=== PATIENT | female | born 1970 | race Caucasian/White ===

== ENCOUNTER 2017-11-04 16:26 | Emergency (ER) | payer BC ==
[2017-11-04] MEDS ORDERED: Sodium Chloride 0.9% 10 ML Syringe FLUSH PRN (17:10)
[2017-11-04] MEDS ORDERED: Ondansetron 4 MG/2 ML SDV IVPUSH ONE (17:27)
[2017-11-04] MEDS ORDERED: Sodium Chloride 0.9% 1,000 ML IV ONE (17:27)
--- NOTE | 2017-11-04 19:02 | EDM.PDOC ---
ED HPI GENERAL MEDICAL PROBLEM - General Chief Complaint: Neuro Symptoms/Deficits Stated Complaint: CHEST PAIN Time Seen by Provider: 11/04/17 18:58 Source of Information: Reports: Patient History Limitations: Reports: No Limitations - History of Present Illness INITIAL COMMENTS - FREE TEXT/NARRATIVE: 47-year-old female presents for evaluation and treatment of chest pain, chest palpitations and dizziness. Patient feels that chest palpitations or dizziness are unrelated things. She reports that she's had the dizziness for the last week and a half since getting new glasses. She has subsequently followed up with her eye doctor and her vision has been corrected. She states that he is having difficulty focusing both eyes together. She states she was told by her eye doctor if she continues to have problems he would recommend imaging of the brain. Patient reports dizziness that is worse with movement. Reports associated symptoms of nausea and vomiting. States that the vomiting stopped on Friday. She also has headaches. She describes the dizziness as extreme carsickness. She did try Dramamine and meclizine with no relief. Patient also reports chest palpitations and chest pain. States this is been present for the last day. She appreciated high blood pressure earlier. Reports her blood pressure was 189/97 at home earlier. She states that she does feel short of breath like she "just ran a marathon ". No syncope or fatigue. Primary care provider is Dr. Montgomery. Patient presented to the walk-in clinic today but was sent over to us for further management and care. - Related Data Allergies Allergy/AdvReac Type Severity Reaction Status Date / Time codeine Allergy Airway Verified 11/04/17 16:33 Tightness Home Meds: Home Meds Meclizine [Antivert] 25 mg PO TID PRN #30 tab 11/04/17 [Rx] Ondansetron [Zofran ODT] 4 mg PO Q6H PRN #15 tab.dis 11/04/17 [Rx] Past Medical History Cardiovascular History: Reports: Hypertension Musculoskeletal History: Reports: Fibromyalgia, Other (See Below) Other Musculoskeletal History: arthritis Social & Family History - Tobacco Use Smoking Status *Q: Never Smoker - Recreational Drug Use Recreational Drug Use: No ED ROS GENERAL - Review of Systems Review Of Systems: See Below Constitutional: Denies: Fatigue HEENT: Reports: Vision Change Respiratory: Reports: Shortness of Breath Cardiovascular: Reports: Chest Pain, Lightheadedness, Palpitations. Denies: Syncope GI/Abdominal: Reports: Nausea, Vomiting. Denies: Abdominal Pain Musculoskeletal: Reports: Neck Pain (chronic) Neurological: Reports: Headache. Denies: Syncope ED EXAM, NEURO - Physical Exam Exam: See Below Exam Limited By: No Limitations General Appearance: Alert, WD/WN, No Apparent Distress Eye Exam: Bilateral Eye: Normal Inspection, Nystagmus (with horizontal and vertical gaze), PERRL Ears: Normal External Exam, Normal Canal, Hearing Grossly Normal, Normal TMs Nose: Normal Inspection Throat/Mouth: Normal Inspection, Normal Lips, Normal Voice, No Airway Compromise Head Exam: Atraumatic, Normocephalic Neck: Normal Inspection, Non-Tender, Full Range of Motion Respiratory/Chest: No Respiratory Distress, Lungs Clear, Normal Breath Sounds Cardiovascular: Normal Peripheral Pulses, Regular Rate, Rhythm, No Murmur GI/Abdominal: Soft, Non-Tender Neurological: Alert, Normal Mood/Affect, Normal Dorsiflexion, CN II-XII Intact, Normal Plantar Flexion, Normal Gait, Oriented x 3, Other (Normal heel to li testing) Psychiatric: Normal Affect, Normal Mood Skin Exam: Warm, Dry, Normal Color EKG INTERPRETATION EKG Date: 11/04/17 Time: 16:35 Rhythm: NSR Rate (Beats/Min): 90 [place]: Normal P-Wave: Present QRS: Normal ST-T: Normal QT: Normal EKG Interpretation Comments: NSR at 90 bpm. No acute changes. Reviewed by myself and Dr. Whitten. Course - Vital Signs Last Recorded V/S: Last Vital Signs Temp 37.2 C 11/04/17 16:33 Pulse 93 11/04/17 16:33 Resp 17 11/04/17 16:33 BP 146/84 H 11/04/17 16:33 Pulse Ox 100 11/04/17 16:33 Orthostatic Blood Pressure [ 142/88 Standing] Orthostatic Blood Pressure [ 144/95 Sitting] Orthostatic Blood Pressure [ 132/85 Supine] - Orders/Labs/Meds Labs: Laboratory Tests 11/04/17 11/04/17 11/04/17 Range/Units 16:45 16:45 16:45 WBC 8.49 (3.98-10.04) K/mm3 RBC 5.19 (3.98-5.22) M/mm3 Hgb 14.6 (11.2-15.7) gm/L Hct 43.2 (34.1-44.9) % MCV 83.2 (79.4-94.8) fl MCH 28.1 (25.6-32.2) pg MCHC 33.8 (32.2-35.5) g/dl RDW Std Deviation 38.6 (36.4-46.3) fL Plt Count 338 (182-369) K/mm3 MPV 9.5 (9.4-12.3) fl Neutrophils % (Manual) 59 (40-60) % Band Neutrophils % 0 (0-10) % Lymphocytes % (Manual) 36 (20-40) % Atypical Lymphs % 0 % Monocytes % (Manual) 1 L (2-10) % Eosinophils % (Manual) 2 (0.7-5.8) % Basophils % (Manual) 2 H (0.1-1.2) Platelet Estimate Adequate Plt Morphology Comment Normal RBC Morph Comment Normal Sodium 143 (136-145) mEq/L Potassium 4.2 (3.5-5.1) mEq/L Chloride 107 (98-107) mEq/L Carbon Dioxide 26 (21-32) mEq/L Anion Gap 14.2 (5-15) BUN 18 (7-18) mg/dL Creatinine 0.8 (0.55-1.02) mg/dL Est Cr Clr Drug Dosing 76.68 mL/min Estimated GFR (MDRD) > 60 (>60) mL/min BUN/Creatinine Ratio 22.5 H (14-18) Glucose 111 H (74-106) mg/dL Calcium 9.1 (8.5-10.1) mg/dL Magnesium 2.0 (1.8-2.4) mg/dl Total Bilirubin 0.3 (0.2-1.0) mg/dL AST 21 (15-37) U/L ALT 28 (14-59) U/L Alkaline Phosphatase 76 (46-116) U/L Troponin I < 0.017 (0.00-0.056) ng/mL Total Protein 6.7 (6.4-8.2) g/dl Albumin 3.7 (3.4-5.0) g/dl Globulin 3.0 gm/dL Albumin/Globulin Ratio 1.2 (1-2) TSH 3rd Generation 2.384 (0.358-3.74) uIU/mL Urine Color (Yellow) Urine Appearance (Clear) Urine pH (5.0-8.0) Ur Specific [place] (1.005-1.030) Urine Protein (Negative) Urine Glucose (UA) (Negative) Urine Ketones (Negative) Urine Occult Blood (Negative) Urine Nitrite (Negative) Urine Bilirubin (Negative) Urine Urobilinogen (0.2-1.0) Ur Leukocyte Esterase (Negative) Urine RBC (0-5) /hpf Urine WBC (0-5) /hpf Ur Epithelial Cells (0-5) /hpf Urine Bacteria (FEW) /hpf Urine Mucus (FEW) /hpf Urine HCG, Qual (NEGATIVE) 11/04/17 11/04/17 Range/Units 17:30 17:30 WBC (3.98-10.04) K/mm3 RBC (3.98-5.22) M/mm3 Hgb (11.2-15.7) gm/L Hct (34.1-44.9) % MCV (79.4-94.8) fl MCH (25.6-32.2) pg MCHC (32.2-35.5) g/dl RDW Std Deviation (36.4-46.3) fL Plt Count (182-369) K/mm3 MPV (9.4-12.3) fl Neutrophils % (Manual) (40-60) % Band Neutrophils % (0-10) % Lymphocytes % (Manual) (20-40) % Atypical Lymphs % % Monocytes % (Manual) (2-10) % Eosinophils % (Manual) (0.7-5.8) % Basophils % (Manual) (0.1-1.2) Platelet Estimate Plt Morphology Comment RBC Morph Comment Sodium (136-145) mEq/L Potassium (3.5-5.1) mEq/L Chloride (98-107) mEq/L Carbon Dioxide (21-32) mEq/L Anion Gap (5-15) BUN (7-18) mg/dL Creatinine (0.55-1.02) mg/dL Est Cr Clr Drug Dosing mL/min Estimated GFR (MDRD) (>60) mL/min BUN/Creatinine Ratio (14-18) Glucose (74-106) mg/dL Calcium (8.5-10.1) mg/dL Magnesium (1.8-2.4) mg/dl Total Bilirubin (0.2-1.0) mg/dL AST (15-37) U/L ALT (14-59) U/L Alkaline Phosphatase (46-116) U/L Troponin I (0.00-0.056) ng/mL Total Protein (6.4-8.2) g/dl Albumin (3.4-5.0) g/dl Globulin gm/dL Albumin/Globulin Ratio (1-2) TSH 3rd Generation (0.358-3.74) uIU/mL Urine Color Yellow (Yellow) Urine Appearance Clear (Clear) Urine pH 5.5 (5.0-8.0) Ur Specific [place] 1.020 (1.005-1.030) Urine Protein Negative (Negative) Urine Glucose (UA) Negative (Negative) Urine Ketones Negative (Negative) Urine Occult Blood Trace-intact H (Negative) Urine Nitrite Negative (Negative) Urine Bilirubin Negative (Negative) Urine Urobilinogen 0.2 (0.2-1.0) Ur Leukocyte Esterase Negative (Negative) Urine RBC 0-5 (0-5) /hpf Urine WBC 0-5 (0-5) /hpf Ur Epithelial Cells 0-5 (0-5) /hpf Urine Bacteria Not seen (FEW) /hpf Urine Mucus Not seen (FEW) /hpf Urine HCG, Qual Negative (NEGATIVE) Meds: Medications Discontinued Medications Generic Name Dose Route Start Last Admin Trade Name Freq PRN Reason Stop Dose Admin Sodium Chloride 1,000 mls @ 999 mls/hr 11/04/17 17:27 11/04/17 17:37 Normal Saline IV 11/04/17 18:27 999 mls/hr ONETIME ONE Administration Meclizine HCl 25 mg 11/04/17 17:27 11/04/17 17:37 Antivert PO 11/04/17 17:28 25 mg NOW STA Administration Ondansetron HCl 4 mg 11/04/17 17:27 11/04/17 17:35 Zofran IVPUSH 11/04/17 17:28 4 mg ONETIME ONE Administration Sodium Chloride 10 ml 11/04/17 17:10 11/04/17 17:37 Saline Flush FLUSH 10 ml ASDIRECTED PRN Administration Keep Vein Open - Radiology Interpretation Free Text/Narrative:: CT of the head without contrast impression per [facility]: Normal head/brain CT. Chest x-ray shows no acute intrathoracic process. - Re-Assessments/Exams Free Text/Narrative Re-Assessment/Exam: 11/04/17 19:47 I reviewed the labs, EKG and imaging with the patient. She feels greatly improved with the Zofran and meclizine. I do question she something like BPPV. We discussed physical therapy. She may follow-up with physical therapy if not much better. Recommend if she continues to have the vision problems an MRI would be the next step if she continues to have this. Patient reports the chest pain and palpitations have resolved since coming to the ER. Question of this is anxiety related. Will discharge home at this time. Discharge instructions as documented. Departure - Departure Time of Disposition: 19:48 Disposition: Home, Self-Care 01 Condition: Good Clinical Impression: Vertigo - Discharge Information Prescriptions: Meclizine [Antivert] 25 mg PO TID PRN #30 tab PRN Reason: Dizziness Ondansetron [Zofran ODT] 4 mg PO Q6H PRN #15 tab.dis PRN Reason: Nausea Instructions: Vertigo Referrals: Brian Cox MD [Primary Care Provider] - Forms: ED Department Discharge Additional Instructions: Take the Zofran 1 tab some of the every 6 hours as needed for nausea. Meclizine 1 tab 3 times a day as needed for dizziness. make sure you are drinking plenty of fluids. Follow up with physical therapy if you continue to have dizziness. Follow-up with your primary care provider within 2 weeks for recheck of your symptoms. Please return to the ER if your symptoms change or worsen.
--- NOTE | 2017-11-05 08:30 | CR ---
Chest: Portable view of the chest was obtained. Comparison: No prior chest x-ray. Heart size appears within normal limits for portable technique. Tortuous thoracic aorta is seen. Lungs are clear with no acute parenchymal change. Bony structures appear within normal limits. Impression: 1. Nothing acute is identified on portable chest x-ray. Diagnostic code #1
--- NOTE | 2017-11-05 08:30 | CT ---
Head CT Technique: Multiple axial sections through the brain were obtained. Intravenous contrast was not utilized. Comparison: No previous intracranial imaging. Findings: Ventricles along with basal cisterns and sulci over the convexities are within normal limits for the patient's age. No abnormal parenchymal densities are seen. No evidence of intracranial hemorrhage. No midline shift or mass effect is seen. Bone window settings were reviewed which show the visualized sinuses to appear clear. No acute calvarial abnormality is seen. Impression: 1. Nothing acute is seen on noncontrast head CT study. Diagnostic code #1 Agree with preliminary report issued by [facility] ([facility] preliminary report dictated on 11/04/17, 7:48 PM Central Time)
== END 2017-11-04 20:00 | disposition home or self-care (01) ==
LOC: JD.ED 16:26
DX: R42 Dizziness and giddiness (principal); R07.9 Chest pain, unspecified; R00.2 Palpitations; I10 Essential (primary) hypertension; Z88.5 Allergy status to narcotic agent
CPT/HCPCS: 36415; 70460; 71045; 80053; 81001; 81025; 83735; 84443; 84484; 85025; 93005; 96361; 96374; 99285; A9270; J2405; J7040; J7050

== ENCOUNTER 2019-04-08 16:20 | Emergency (ER) | payer MEDICAID ==
--- NOTE | 2019-04-08 16:45 | EDM.PDOC ---
ED HPI GENERAL MEDICAL PROBLEM - General Chief Complaint: Cardiovascular Problem Stated Complaint: HIGH BLOOD PRESSURE AND SOB Time Seen by Provider: 04/08/19 16:42 - History of Present Illness INITIAL COMMENTS - FREE TEXT/NARRATIVE: 48-year-old female presents emergency room with palpitations chest discomfort with the palpitations. This is been an ongoing problem for the patient today he's been exceptionally worse patient needed to work within had the sensation work felt like her heart was turning inside of her chest. Her pulse rate was erratic. And her blood pressure went up. Patient is treated for hypertension. With further discussion with patient and her children confirming this the patient has significant problems with snoring and has multiple episodes were she stops breathing at night. Left Chest Pain Score (Numeric/FACES): 4 - Related Data Allergies Allergy/AdvReac Type Severity Reaction Status Date / Time codeine Allergy Airway Verified 11/04/17 16:33 Tightness Home Meds: Home Meds Meclizine [Antivert] 25 mg PO TID PRN #30 tab 11/04/17 [Rx] Cetirizine [ZyrTEC] 10 mg PO DAILY 03/06/18 [History] Gabapentin [Neurontin] 600 mg PO BID 03/06/18 [History] Metoprolol Succinate 25 mg PO DAILY 03/06/18 [History] Past Medical History HEENT History: Reports: Allergic Rhinitis Cardiovascular History: Reports: Hypertension Musculoskeletal History: Reports: Arthritis Other Musculoskeletal History: arthritis Neurological History: Reports: Migraines Psychiatric History: Reports: Depression, Other (See Below) Endocrine/Metabolic History: Reports: Obesity/BMI 30+ - Past Surgical History HEENT Surgical History: Reports: Adenoidectomy, Myringotomy w Tube(s), Oral Surgery, Polypectomy GI Surgical History: Reports: Cholecystectomy, Hernia, Inguinal Female Surgical History: Reports: D&C, Hysterectomy Social & Family History - Tobacco Use Smoking Status *Q: Never Smoker - Caffeine Use Caffeine Use: Reports: Coffee, Soda, Tea - Recreational Drug Use Recreational Drug Use: No - Living Situation & Occupation Living situation: Reports: , with Family (Mother, 3 kids) Occupation: Unemployed ED ROS GENERAL - Review of Systems Review Of Systems: See Below Constitutional: Reports: No Symptoms HEENT: Reports: No Symptoms Respiratory: Reports: Shortness of Breath, Pleuritic Chest Pain, Cough. Denies : Wheezing, Sputum Cardiovascular: Reports: Chest Pain, Dyspnea on Exertion, Palpitations. Denies : Edema Endocrine: Reports: No Symptoms GI/Abdominal: Reports: No Symptoms Neurological: Reports: No Symptoms ED EXAM, GENERAL - Physical Exam Exam: See Below Exam Limited By: No Limitations General Appearance: Alert, No Apparent Distress, Other (Her blood pressure is moderately elevated upon arrival but this did come down with rest sometimes significantly so with systolics in the 120s and 130s) Eye Exam: Bilateral Eye: Normal Inspection Head: Atraumatic, Normocephalic Neck: Normal Inspection, Supple, Non-Tender, Full Range of Motion Respiratory/Chest: No Respiratory Distress, Lungs Clear, Normal Breath Sounds Extremities: Normal Inspection, No Pedal Edema Neurological: Alert, Oriented, Normal Cognition EKG INTERPRETATION EKG Date: 04/08/19 Rhythm: NSR [place]: Normal P-Wave: Present QRS: Normal ST-T: Normal QT: Normal Comparison: NA - No Prior EKG EKG Interpretation Comments: Normal EKG Course - Vital Signs Last Recorded V/S: Last Vital Signs Temp 36.3 C 04/08/19 16:38 Pulse 97 04/08/19 16:38 Resp 20 04/08/19 16:38 BP 174/102 H 04/08/19 16:38 Pulse Ox 97 04/08/19 16:38 - Orders/Labs/Meds Orders: Active Orders 24 hr Category Date Time Status EKG Documentation Completion [RC] ASDIRECTED Care 04/08/19 16:34 Active Holter Monitor 48 Hours [RC] .PRN Care 04/08/19 19:00 Ordered RT Post Treatment Assessment [RC] Click to Edit Care 04/08/19 18:50 Ordered RT Pre-Treatment Assessment [RC] Click to Edit Care 04/08/19 18:50 Ordered Chest 2V [CR] Stat Exams 04/08/19 17:12 Taken EKG 12 Lead [EK] Stat Ther 04/08/19 16:33 Ordered Labs: Laboratory Tests 04/08/19 04/08/19 04/08/19 Range/Units 17:31 17:31 17:31 WBC 10.25 H (3.98-10.04) K/mm3 RBC 5.23 H (3.98-5.22) M/mm3 Hgb 14.6 (11.2-15.7) gm/L Hct 43.3 (34.1-44.9) % MCV 82.8 (79.4-94.8) fl MCH 27.9 (25.6-32.2) pg MCHC 33.7 (32.2-35.5) g/dl RDW Std Deviation 39.5 (36.4-46.3) fL Plt Count 428 H D (182-369) K/mm3 MPV 8.9 L (9.4-12.3) fl Neutrophils % (Manual) 71 H (40-60) % Band Neutrophils % 0 (0-10) % Lymphocytes % (Manual) 24 (20-40) % Atypical Lymphs % 0 % Monocytes % (Manual) 3 (2-10) % Eosinophils % (Manual) 2 (0.7-5.8) % Basophils % (Manual) 0 L (0.1-1.2) Platelet Estimate Adequate RBC Morph Comment Normal PT 10.1 (9.7-12.0) SECONDS INR < 0.93 APTT 29 (22-31) SECONDS D-Dimer, Quantitative 0.32 (0.19-0.50) mg/L Sodium 140 (136-145) mEq/L Potassium 3.9 (3.5-5.1) mEq/L Chloride 105 (98-107) mEq/L Carbon Dioxide 25 (21-32) mEq/L Anion Gap 13.9 (5-15) BUN 18 (7-18) mg/dL Creatinine 0.7 (0.55-1.02) mg/dL Est Cr Clr Drug Dosing 86.72 mL/min Estimated GFR (MDRD) > 60 (>60) mL/min BUN/Creatinine Ratio 25.7 H (14-18) Glucose 105 (74-106) mg/dL Calcium 9.2 (8.5-10.1) mg/dL Total Bilirubin 0.3 (0.2-1.0) mg/dL AST 15 (15-37) U/L ALT 30 (14-59) U/L Alkaline Phosphatase 96 (46-116) U/L Troponin I < 0.017 (0.00-0.056) ng/mL Total Protein 7.0 (6.4-8.2) g/dl Albumin 3.4 (3.4-5.0) g/dl Globulin 3.6 gm/dL Albumin/Globulin Ratio 0.9 L (1-2) Meds: Medications Discontinued Medications Generic Name Dose Route Start Last Admin Trade Name [place] PRN Reason Stop Dose Admin Albuterol 8.5 gm 04/08/19 18:50 Proventil Hfa INH 04/08/19 18:51 ONETIME ONE - Re-Assessments/Exams Free Text/Narrative Re-Assessment/Exam: 04/08/19 19:13 Laboratory evaluation is unremarkable chest x-ray shows no acute cardiopulmonary changes no cardiomegaly she's had some degenerative changes noted. We'll try and get a Holter monitor hooked up for her strongly encouraged her to have a talk with her regular physician about getting sleep apnea studies done. It sounds like she has a big snoring problem with multiple pauses in her breathing and prolonged episodes are she's not breathing according to her kids. Departure - Departure Time of Disposition: 19:16 Disposition: Home, Self-Care 01 Clinical Impression: Palpitations, Hypertension, Bronchitis Referrals: Brian Cox MD [Primary Care Provider] - Forms: ED Department Discharge Additional Instructions: Return to emergency room if any questions problems worsening symptoms. Use the albuterol inhaler 2 puffs every 4 hours while awake. Return the Holter monitor is scheduled. Several days after the Holter monitor is returned follow-up with your regular physician. Discussed the results of the Holter discuss sleep apnea and the need for sleep studies. - My Orders Last 24 Hours: My Active Orders 04/08/19 16:33 EKG 12 Lead [EK] Stat 04/08/19 16:34 EKG Documentation Completion [RC] ASDIRECTED 04/08/19 17:12 Chest 2V [CR] Stat 04/08/19 18:50 RT Post Treatment Assessment [RC] Click to Edit RT Pre-Treatment Assessment [RC] Click to Edit 04/08/19 19:00 Holter Monitor 48 Hours [RC] .PRN - Assessment/Plan Last 24 Hours: My Active Orders 04/08/19 16:33 EKG 12 Lead [EK] Stat 04/08/19 16:34 EKG Documentation Completion [RC] ASDIRECTED 04/08/19 17:12 Chest 2V [CR] Stat 04/08/19 18:50 RT Post Treatment Assessment [RC] Click to Edit RT Pre-Treatment Assessment [RC] Click to Edit 04/08/19 19:00 Holter Monitor 48 Hours [RC] .PRN
[2019-04-08] MEDS ORDERED: Albuterol 6.7 GM Inhaler INH ONE (18:50)
--- NOTE | 2019-04-09 09:10 | CR ---
Chest: Two views of the chest were obtained. Comparison: Prior chest x-ray of 11/04/17. Heart size at the upper limits of normal. Tortuous thoracic aorta is seen. Lungs are clear with no acute parenchymal change. Degenerative endplate spurring is noted within the mid and lower thoracic spine. No acute osseous finding is seen. Impression: 1. Heart size at the upper limits of normal. Other incidental findings. 2. Nothing acute is appreciated. Diagnostic code #2
== END 2019-04-08 19:40 | disposition home or self-care (01) ==
LOC: JD.ED 16:20
DX: R00.2 Palpitations (principal); J40 Bronchitis, not specified as acute or chronic; I10 Essential (primary) hypertension; F32.9 Major depressive disorder, single episode, unspecified; E66.9 Obesity, unspecified; Z98.890 Other specified postprocedural states; Z88.5 Allergy status to narcotic agent; Z90.49 Acquired absence of other specified parts of digestive tract; Z68.41 Body mass index [BMI] 40.0-44.9, adult; Z79.899 Other long term (current) drug therapy
CPT/HCPCS: 36415; 71046; 80053; 84484; 85007; 85027; 85379; 85610; 85730; 93005; 93225; 93226; 99285; A9270

== ENCOUNTER 2019-05-26 17:36 | Emergency (ER) | payer MEDICAID ==
[2019-05-26] MEDS ORDERED: Racepinephrine 2.25% 0.5 ML Neb Soln NEB ONE (18:15)
[2019-05-26] MEDS ORDERED: Sodium Chloride 0.9% Inhalation Soln 3 ML Neb INH PRN (18:15)
[2019-05-26] MEDS ORDERED: Dexamethasone 10 MG/ML SDV IM ONE (18:16)
--- NOTE | 2019-05-26 18:24 | EDM.PDOC ---
<Lucrecia Benitez - Last Filed: 05/26/19 18:10> ED HPI GENERAL MEDICAL PROBLEM - General Chief Complaint: Respiratory Problem Stated Complaint: DIFFICULTY BREATHING Time Seen by Provider: 05/26/19 17:46 Source of Information: Reports: Patient History Limitations: Reports: No Limitations - History of Present Illness INITIAL COMMENTS - FREE TEXT/NARRATIVE: Evelia is a 48 year old female who presents to the ED today with difficulty breathing. She was seen at the ENT in [place] yesterday for evaluation of dyspnea. 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 She was then sent to the [facility] ED where a CT with contrast of her neck was done along with a CTA of her chest. She was given a duoneb while in the ED but she said this did not give her much relief. She was told to follow up with pulmonology in 6 days and to come to the ED if she experienced any difficulty breathing before then. Today while at work her coworkers noticed something was "off" about her and she felt that her pulse was racing and she could not catch her breath. She went into the cooler and the cool air seemed to help her catch her breath. She was still audibly wheezing and felt as though she could not take a deep breath after work, which was just prior to arriving in the ED. Headache Pain Score (Numeric/FACES): 7 - Related Data Allergies Allergy/AdvReac Type Severity Reaction Status Date / Time codeine Allergy Airway Verified 05/26/19 17:49 Tightness Home Meds: Home Meds Meclizine [Antivert] 25 mg PO TID PRN #30 tab 11/04/17 [Rx] Cetirizine [ZyrTEC] 10 mg PO DAILY 03/06/18 [History] Metoprolol Succinate 50 mg PO DAILY 03/06/18 [History] Albuterol Sulfate [Proair Respiclick] 2 puff IH Q4H 05/26/19 [History] Celecoxib [CeleBREX] 200 mg PO DAILY 05/26/19 [History] Cyclobenzaprine [Flexeril] 10 mg PO BEDTIME 05/26/19 [History] Gabapentin [Neurontin] 100 mg PO TID 05/26/19 [History] Montelukast Sodium [Singulair] 10 mg PO BEDTIME 05/26/19 [History] Multivitamin with Minerals [Hair, Skin and Nails] 3 tab PO DAILY 05/26/19 [ History] Multivits,Ca,Minerals/Iron/FA [Women's Daily Formula Caplet] 1 tab PO DAILY [History] Past Medical History HEENT History: Reports: Allergic Rhinitis Cardiovascular History: Reports: Hypertension Respiratory History: Reports: Other (See Below) Other Respiratory History: trachea stenosis Musculoskeletal History: Reports: Arthritis Other Musculoskeletal History: arthritis Neurological History: Reports: Migraines Psychiatric History: Reports: Depression Endocrine/Metabolic History: Reports: Obesity/BMI 30+ - Past Surgical History HEENT Surgical History: Reports: Adenoidectomy, Myringotomy w Tube(s), Oral Surgery, Polypectomy GI Surgical History: Reports: Cholecystectomy, Hernia, Inguinal Female Surgical History: Reports: D&C, Hysterectomy Social & Family History - Tobacco Use Smoking Status *Q: Never Smoker - Caffeine Use Caffeine Use: Reports: Coffee - Recreational Drug Use Recreational Drug Use: No - Living Situation & Occupation Living situation: Reports: , with Family (Mother, 3 kids) Occupation: Unemployed ED ROS GENERAL - Review of Systems Review Of Systems: See Below Constitutional: Reports: No Symptoms HEENT: Reports: No Symptoms Respiratory: Reports: Shortness of Breath, Wheezing Cardiovascular: Reports: No Symptoms Endocrine: Reports: No Symptoms GI/Abdominal: Reports: No Symptoms : Reports: No Symptoms Musculoskeletal: Reports: No Symptoms Skin: Reports: No Symptoms Neurological: Reports: No Symptoms Psychiatric: Reports: No Symptoms Hematologic/Lymphatic: Reports: No Symptoms Immunologic: Reports: No Symptoms ED EXAM, GENERAL - Physical Exam Exam: See Below Exam Limited By: No Limitations General Appearance: Alert, WD/WN, No Apparent Distress Neck: Normal Inspection, Supple, Non-Tender, Full Range of Motion Respiratory/Chest: Chest Non-Tender, Respiratory Distress (mild), Wheezing ( audible wheezing along with expiratory wheezes on auscultation ), Accessory Muscle Use (paradoxical breathing ) Cardiovascular: Normal Peripheral Pulses, Regular Rate, Rhythm, No Edema, No Gallop, No JVD, No Murmur, No Rub GI/Abdominal: Normal Bowel Sounds, Soft, Non-Tender, No Organomegaly, No Distention, No Abnormal Bruit, No Mass Back Exam: Normal Inspection, Full Range of Motion, NT Extremities: Normal Inspection, Normal Range of Motion, Non-Tender, Normal Capillary Refill, No Pedal Edema Neurological: Alert, Oriented Psychiatric: Normal Affect, Normal Mood Skin Exam: Warm, Dry, Intact, Normal Color, No Rash Lymphatic: No Adenopathy Course - Vital Signs Last Recorded V/S: Last Vital Signs Temp 97.6 F 05/26/19 17:45 Pulse 79 05/26/19 17:45 Resp 21 H 05/26/19 17:45 BP 133/95 H 05/26/19 17:45 Pulse Ox 100 05/26/19 17:45 - Orders/Labs/Meds Orders: Active Orders 24 hr Category Date Time Status RT Aerosol Therapy [RC] ASDIRECTED Care 05/26/19 18:15 Active Sodium Chloride 0.9% Med 05/26/19 18:15 Active 3 ml INH ASDIRECTED PRN Medication Orders Sodium Chloride (Sodium Chloride 0.9%) 3 ml INH ASDIRECTED PRN PRN Reason: mix with racepinephrine neb Meds: Medications Generic Name Dose Route Start Last Admin Trade Name Freq PRN Reason Stop Dose Admin Sodium Chloride 3 ml 05/26/19 18:15 Sodium Chloride 0.9% INH ASDIRECTED PRN mix with racepinephrine neb Discontinued Medications Generic Name Dose Route Start Last Admin Trade Name Freq PRN Reason Stop Dose Admin Dexamethasone 10 mg 05/26/19 18:16 05/26/19 18:27 Dexamethasone IM 05/26/19 18:17 10 mg ONETIME ONE Administration Racepinephrine 0.5 ml 05/26/19 18:15 05/26/19 18:35 S-2 2.25% NEB 05/26/19 18:16 0.5 ml ONETIME ONE Administration Departure - Departure Disposition: Home, Self-Care 01 Clinical Impression: Dyspnea Qualifiers: Dyspnea type: shortness of breath Qualified Code(s): R06.02 - Shortness of breath - Discharge Information Instructions: Shortness of Breath, Adult, [id number] Referrals: Brian Cox MD [Primary Care Provider] - Forms: ED Department Discharge, ED Return to Work/School Form Additional Instructions: You were evaluated in the ER today regarding your shortness of breath. You were given a racemic epinephrine nebulizer, this works on the upper airways to help open them up and help you breathe better. You were given a 10 mg IM injection of dexamethasone, this medication should provide you relief, and is a longer acting steroid. You should notice most benefit starting within 4-6 hours. Recommend that you follow up with pulmonology at [facility] in [place], as early as you are able tomorrow, for further management of this. If your finding or having difficulty breathing, please go outside into the cool air to see if this does not help soothe her airways, you may also use a cool mist humidifier at bedside for nighttime use. Please return to the ED at any time if your symptoms change or worsen. - My Orders Last 24 Hours: My Active Orders 05/26/19 18:15 RT Aerosol Therapy [RC] ASDIRECTED Sodium Chloride 0.9% 3 ml INH ASDIRECTED PRN - Assessment/Plan Last 24 Hours: My Active Orders 05/26/19 18:15 RT Aerosol Therapy [RC] ASDIRECTED Sodium Chloride 0.9% 3 ml INH ASDIRECTED PRN <Radha Ndiaye - Last Filed: 05/26/19 19:41> ED HPI GENERAL MEDICAL PROBLEM - History of Present Illness INITIAL COMMENTS - FREE TEXT/NARRATIVE: I have read and reviewed the student's HPI and examined the patient and agree with ARABELLA Hartley-student. Course - Re-Assessments/Exams Free Text/Narrative Re-Assessment/Exam: 05/26/19 19:25 Patient presents to the ED for evaluation of difficulty breathing. I did order racemic epinephrine and 10 mg dexamethasone for initial management. The patient did have a good response to this, and she states this is a best she's been breathing in the past 2 months. At this time patient is hemodynamically stable, and O2 sats are good, the wheezing has diminished quite greatly. We'll discharge her home with general recommendations. She will need to follow up with pulmonology as soon as possible for further management. She is understanding of this. Departure - Departure Time of Disposition: 19:26 Condition: Fair - Discharge Information *PRESCRIPTION DRUG MONITORING PROGRAM REVIEWED*: No *COPY OF PRESCRIPTION DRUG MONITORING REPORT IN PATIENT HERMINIA: No
== END 2019-05-26 19:38 | disposition home or self-care (01) ==
LOC: JD.ED 17:36
DX: R06.02 Shortness of breath (principal); I10 Essential (primary) hypertension; M19.90 Unspecified osteoarthritis, unspecified site; E66.9 Obesity, unspecified; Z68.41 Body mass index [BMI] 40.0-44.9, adult; Z88.5 Allergy status to narcotic agent; Z79.899 Other long term (current) drug therapy
CPT/HCPCS: 94640; 96372; 99284; J1100

== ENCOUNTER 2019-09-04 15:56 | Emergency (ER) | payer MEDICAID ==
[2019-09-04] MEDS ORDERED: Ondansetron 4 MG/2 ML SDV IVPUSH ONE (16:20)
[2019-09-04] MEDS ORDERED: Sodium Chloride 0.9% 10 ML Syringe FLUSH PRN (16:20)
[2019-09-04] MEDS ORDERED: Albuterol/Ipratropium 3.0-0.5 MG/3 ML Neb Soln NEB ONE (16:21)
[2019-09-04] MEDS ORDERED: Sodium Chloride 0.9% 1,000 ML IV SCH (16:30)
--- NOTE | 2019-09-04 17:11 | EDM.PDOC ---
ED HPI GENERAL MEDICAL PROBLEM - General Chief Complaint: Respiratory Problem Stated Complaint: SOB Time Seen by Provider: 09/04/19 16:11 Source of Information: Reports: Patient History Limitations: Reports: No Limitations - History of Present Illness INITIAL COMMENTS - FREE TEXT/NARRATIVE: The patient presents for shortness of breath and chest pain. This started this afternoon. 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 She then had shortness of breath and some chest pain. She will get some spasms of her airway at times and she does have asthma. 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 She has no fever, chills, cough, congestion, or dysuria. She did take a couple puffs off of her inhaler and it helped a little. She does not have much abdominal pain. Onset: Sudden Duration: Hour(s): Location: Reports: Chest Quality: Reports: Pressure Severity: Moderate Improves with: Reports: None Worsens with: Reports: None Associated Symptoms: Reports: Chest Pain, Nausea/Vomiting, Shortness of Breath. Denies: Cough, Fever/Chills, Headaches Middle Chest Pain Score (Numeric/FACES): 5 - Related Data Allergies Allergy/AdvReac Type Severity Reaction Status Date / Time codeine Allergy Airway Verified 09/04/19 16:03 Tightness Home Meds: Home Meds Meclizine [Antivert] 25 mg PO TID PRN #30 tab 11/04/17 [Rx] Cetirizine [ZyrTEC] 10 mg PO DAILY 03/06/18 [History] Metoprolol Succinate 50 mg PO DAILY 03/06/18 [History] Albuterol Sulfate [Proair Respiclick] 2 puff IH Q4H 05/26/19 [History] Celecoxib [CeleBREX] 200 mg PO DAILY 05/26/19 [History] Cyclobenzaprine [Flexeril] 10 mg PO BEDTIME 05/26/19 [History] Gabapentin [Neurontin] 100 mg PO TID 05/26/19 [History] Montelukast Sodium [Singulair] 10 mg PO BEDTIME 05/26/19 [History] Multivit,Calc,Mins/Iron/Folic [Women's Daily Formula Caplet] 1 tab PO DAILY [History] Multivitamin with Minerals [Hair, Skin and Nails] 3 tab PO DAILY 05/26/19 [ History] Ondansetron [Zofran ODT] 4 mg PO Q6H PRN #20 tab.dis 09/04/19 [Rx] Past Medical History HEENT History: Reports: Allergic Rhinitis Cardiovascular History: Reports: Hypertension Respiratory History: Reports: Asthma, Other (See Below) Other Respiratory History: trachea stenosis, spastic trachea Musculoskeletal History: Reports: Arthritis Other Musculoskeletal History: arthritis Neurological History: Reports: Migraines Psychiatric History: Reports: Depression Endocrine/Metabolic History: Reports: Obesity/BMI 30+ - Past Surgical History HEENT Surgical History: Reports: Adenoidectomy, Myringotomy w Tube(s), Oral Surgery, Polypectomy GI Surgical History: Reports: Cholecystectomy, Hernia, Inguinal Female Surgical History: Reports: D&C, Hysterectomy Social & Family History - Tobacco Use Smoking Status *Q: Never Smoker Second Hand Smoke Exposure: No - Caffeine Use Caffeine Use: Reports: None - Recreational Drug Use Recreational Drug Use: No - Living Situation & Occupation Living situation: Reports: , with Family (Mother, 3 kids) Occupation: Unemployed ED ROS GENERAL - Review of Systems Review Of Systems: See Below Constitutional: Reports: No Symptoms HEENT: Reports: No Symptoms Respiratory: Reports: Shortness of Breath. Denies: Cough Cardiovascular: Reports: Chest Pain Endocrine: Reports: No Symptoms GI/Abdominal: Reports: Diarrhea, Nausea, Vomiting. Denies: Abdominal Pain : Reports: No Symptoms Musculoskeletal: Reports: No Symptoms ED EXAM, GENERAL - Physical Exam Exam: See Below Exam Limited By: No Limitations General Appearance: Alert, No Apparent Distress Ears: Normal External Exam Nose: Normal Inspection Head: Atraumatic, Normocephalic Neck: Normal Inspection Respiratory/Chest: No Respiratory Distress, Wheezing Cardiovascular: Regular Rate, Rhythm, No Edema, No Murmur GI/Abdominal: Soft, Non-Tender, No Organomegaly, No Mass Back Exam: Normal Inspection Extremities: Normal Inspection Course - Vital Signs Last Recorded V/S: Last Vital Signs Temp 97.6 F 09/04/19 16:00 Pulse 97 09/04/19 16:00 Resp 16 09/04/19 16:00 BP 156/90 H 09/04/19 16:00 Pulse Ox 96 09/04/19 16:21 - Orders/Labs/Meds Orders: Active Orders 24 hr Category Date Time Status Cardiac Monitoring [RC] . DIRECTED Care 09/04/19 16:20 Active EKG 12 Lead [EKG Documentation Completion] [RC] STAT Care 09/04/19 16:08 Active Peripheral IV Care [RC] . DIRECTED Care 09/04/19 16:20 Active RT Aerosol Therapy [RC] ASDIRECTED Care 09/04/19 16:21 Active Sodium Chloride 0.9% [Normal Saline] 1,000 ml Med 09/04/19 16:30 Active IV .BOLUS Sodium Chloride 0.9% [Saline Flush] Med 09/04/19 16:20 Active 10 ml FLUSH ASDIRECTED PRN ED Antiemetic Medication Reflex [OM.PC] Stat Oth 09/04/19 16:20 Ordered Peripheral IV Insertion Adult [OM.PC] Stat Oth 09/04/19 16:20 Ordered Medication Orders Sodium Chloride (Normal Saline) 1,000 mls @ 1,000 mls/hr IV .BOLUS ALBERTA Last Admin: 09/04/19 16:28 Dose: 1,000 mls/hr Sodium Chloride (Saline Flush) 10 ml FLUSH ASDIRECTED PRN PRN Reason: Keep Vein Open Last Admin: 09/04/19 16:28 Dose: 10 ml Labs: Laboratory Tests 09/04/19 09/04/19 Range/Units 16:28 16:28 WBC 9.08 (3.98-10.04) K/mm3 RBC 5.24 H (3.98-5.22) M/mm3 Hgb 14.6 (11.2-15.7) gm/dl Hct 43.8 (34.1-44.9) % MCV 83.6 (79.4-94.8) fl MCH 27.9 (25.6-32.2) pg MCHC 33.3 (32.2-35.5) g/dl RDW Std Deviation 39.5 (36.4-46.3) fL Plt Count 394 H (182-369) K/mm3 MPV 9.1 L (9.4-12.3) fl Neut % (Auto) 70.8 (34.0-71.1) % Lymph % (Auto) 19.5 (19.3-51.7) % [place] % (Auto) 7.7 (4.7-12.5) % Eos % (Auto) 1.4 (0.7-5.8) Baso % (Auto) 0.3 (0.1-1.2) % Neut # (Auto) 6.42 H (1.56-6.13) K/mm3 Lymph # (Auto) 1.77 (1.18-3.74) K/mm3 [place] # (Auto) 0.70 H (0.24-0.36) K/mm3 Eos # (Auto) 0.13 (0.04-0.36) K/mm3 Baso # (Auto) 0.03 (0.01-0.08) K/mm3 Sodium 138 (136-145) mEq/L Potassium 3.9 (3.5-5.1) mEq/L Chloride 103 (98-107) mEq/L Carbon Dioxide 27 (21-32) mEq/L Anion Gap 11.9 (5-15) BUN 16 (7-18) mg/dL Creatinine 0.9 (0.55-1.02) mg/dL Est Cr Clr Drug Dosing 66.73 mL/min Estimated GFR (MDRD) > 60 (>60) mL/min BUN/Creatinine Ratio 17.8 (14-18) Glucose 112 H (74-106) mg/dL Calcium 8.9 (8.5-10.1) mg/dL Total Bilirubin 0.3 (0.2-1.0) mg/dL AST 16 (15-37) U/L ALT 36 (14-59) U/L Alkaline Phosphatase 87 (46-116) U/L Troponin I < 0.017 (0.00-0.056) ng/mL Total Protein 7.0 (6.4-8.2) g/dl Albumin 3.4 (3.4-5.0) g/dl Globulin 3.6 gm/dL Albumin/Globulin Ratio 0.9 L (1-2) Lipase 99 (73-393) U/L Meds: Medications Generic Name Dose Route Start Last Admin Trade Name Freq PRN Reason Stop Dose Admin Sodium Chloride 1,000 mls @ 1,000 mls/hr 09/04/19 16:30 09/04/19 16:28 Normal Saline IV 1,000 mls/hr .BOLUS ALBERTA Administration Sodium Chloride 10 ml 02/01/20 16:20 09/04/19 16:28 Saline Flush FLUSH 10 ml ASDIRECTED PRN Administration Keep Vein Open Discontinued Medications Generic Name Dose Route Start Last Admin Trade Name Deidre PRN Reason Stop Dose Admin Albuterol/Ipratropium 3 ml 09/04/19 16:21 09/04/19 16:39 Duoneb 3.0-0.5 Mg/3 Ml NEB 09/04/19 16:22 3 ml ONETIME ONE Administration Ondansetron HCl 4 mg 09/04/19 16:20 09/04/19 16:28 Zofran IVPUSH 09/04/19 16:21 4 mg ONETIME ONE Administration - Re-Assessments/Exams Free Text/Narrative Re-Assessment/Exam: 09/04/19 17:11 I ordered an IV NS 1L bolus, zofran 4mg IV, labs, duoneb, UA, EKG and a CXR. 09/04/19 18:03 Her CXR looks good. Her EKG shows a NSR with no acute changes. Her CBC and CMP look good. Her troponin is negative. She feels much better. I will get her on some zofran for at home. Departure - Departure Time of Disposition: 18:05 Disposition: Home, Self-Care 01 Condition: Good Clinical Impression: Bronchospasm Nausea and vomiting Qualifiers: Vomiting type: unspecified Vomiting Intractability: non-intractable Qualified Code(s): R11.2 - Nausea with vomiting, unspecified Diarrhea Qualifiers: Diarrhea type: unspecified type Qualified Code(s): R19.7 - Diarrhea, unspecified - Discharge Information *PRESCRIPTION DRUG MONITORING PROGRAM REVIEWED*: Not Applicable *COPY OF PRESCRIPTION DRUG MONITORING REPORT IN PATIENT HERMINIA: Not Applicable Prescriptions: Ondansetron [Zofran ODT] 4 mg PO Q6H PRN #20 tab.dis PRN Reason: Nausea\vomiting Referrals: Brian Cox MD [Primary Care Provider] - Forms: ED Department Discharge, ED Return to Work/School Form Additional Instructions: Drink plenty of fluids. Take the zofran every 6 hours as needed for nausea and vomiting. Please return if you are worse. Sepsis Event Note - Evaluation Sepsis Screening Result: No Definite Risk - Focused Exam Vital Signs: Vital Signs Temp Pulse Resp BP Pulse Ox Pulse Ox 09/04/19 16:21 96 09/04/19 16:00 97.6 F 97 16 156/90 H 97 Date Exam was Performed: 09/04/19 Time Exam was Performed: 18:03 - My Orders Last 24 Hours: My Active Orders 09/04/19 16:08 EKG 12 Lead [EKG Documentation Completion] [RC] STAT 09/04/19 16:20 Cardiac Monitoring [RC] . DIRECTED Peripheral IV Care [RC] . DIRECTED Sodium Chloride 0.9% [Saline Flush] 10 ml FLUSH ASDIRECTED PRN ED Antiemetic Medication Reflex [OM.PC] Stat Peripheral IV Insertion Adult [OM.PC] Stat 09/04/19 16:21 RT Aerosol Therapy [RC] ASDIRECTED 09/04/19 16:30 Sodium Chloride 0.9% [Normal Saline] 1,000 ml IV .BOLUS - Assessment/Plan Last 24 Hours: My Active Orders 09/04/19 16:08 EKG 12 Lead [EKG Documentation Completion] [RC] STAT 09/04/19 16:20 Cardiac Monitoring [RC] . DIRECTED Peripheral IV Care [RC] . DIRECTED Sodium Chloride 0.9% [Saline Flush] 10 ml FLUSH ASDIRECTED PRN ED Antiemetic Medication Reflex [OM.PC] Stat Peripheral IV Insertion Adult [OM.PC] Stat 09/04/19 16:21 RT Aerosol Therapy [RC] ASDIRECTED 09/04/19 16:30 Sodium Chloride 0.9% [Normal Saline] 1,000 ml IV .BOLUS
--- NOTE | 2019-09-04 17:29 | CR ---
Chest: Portable view of the chest was obtained. Comparison: Previous chest x-ray of 04/08/19. Heart size appears within normal limits for portable technique. Mild tortuosity of the thoracic aorta is seen. Lungs are clear with no acute parenchymal change. Bony structures are grossly intact. Impression: 1. Nothing acute is seen on 2 view chest x-ray. Diagnostic code #2 Study was dictated in [place] Standard Time
== END 2019-09-04 18:15 | disposition home or self-care (01) ==
LOC: JD.ED 15:56
DX: J98.01 Acute bronchospasm (principal); R11.2 Nausea with vomiting, unspecified; R19.7 Diarrhea, unspecified; I10 Essential (primary) hypertension; F32.9 Major depressive disorder, single episode, unspecified; E66.9 Obesity, unspecified; Z88.5 Allergy status to narcotic agent; Z79.899 Other long term (current) drug therapy; Z90.49 Acquired absence of other specified parts of digestive tract; Z90.710 Acquired absence of both cervix and uterus; Z68.41 Body mass index [BMI] 40.0-44.9, adult
CPT/HCPCS: 36415; 71045; 80053; 83690; 84484; 85025; 94640; 96361; 96374; 99285; J2405; J7030; 99283; J7620-GY

== ENCOUNTER 2019-10-16 15:21 | Emergency (ER) | payer MEDICAID ==
[2019-10-16] MEDS ORDERED: Albuterol/Ipratropium 3.0-0.5 MG/3 ML Neb Soln NEB ONE (15:30)
[2019-10-16] MEDS ORDERED: Racepinephrine 2.25% 0.5 ML Neb Soln NEB ONE (16:09)
[2019-10-16] MEDS ORDERED: Sodium Chloride 0.9% Inhalation Soln 3 ML Neb INH PRN (16:09)
[2019-10-16] MEDS ORDERED: Dexamethasone 4 MG/ML 5 ML MDV IM ONE (16:10)
--- NOTE | 2019-10-16 16:27 | EDM.PDOC ---
ED HPI GENERAL MEDICAL PROBLEM - General Chief Complaint: Respiratory Problem Stated Complaint: SOB/ASTHMA Time Seen by Provider: 10/16/19 15:43 Source of Information: Reports: Patient History Limitations: Reports: No Limitations - History of Present Illness INITIAL COMMENTS - FREE TEXT/NARRATIVE: Patient is a 48-year-old female who presents with complaints of difficulty breathing and high blood pressures at home. She states over the last 3 days she is having a hard time taking a deep breath. States that she feels like she has something in her throat which causes her to cough intermittently. She has had no fever or chills. She does use albuterol at home as well as Pulmicort neb treatments. She also has another neb treatment, however she is unsure if it is plain albuterol or DuoNeb's. Patient has a diagnosis of tracheal stenosis and the plan is for her to have a balloon dilation done, however they will not complete this procedure without her completing a CPAP a sleep study first. She states that cigarette smoke is a known trigger for her asthma, however she has not been exposed to this recently. - Related Data Allergies Allergy/AdvReac Type Severity Reaction Status Date / Time codeine Allergy Airway Verified 09/04/19 16:03 Tightness Home Meds: Home Meds Meclizine [Antivert] 25 mg PO TID PRN #30 tab 11/04/17 [Rx] Cetirizine [ZyrTEC] 10 mg PO DAILY 03/06/18 [History] Metoprolol Succinate 50 mg PO DAILY 03/06/18 [History] Albuterol Sulfate [Proair Respiclick] 2 puff IH Q4H 05/26/19 [History] Celecoxib [CeleBREX] 200 mg PO DAILY 05/26/19 [History] Cyclobenzaprine [Flexeril] 10 mg PO BEDTIME 05/26/19 [History] Gabapentin [Neurontin] 100 mg PO TID 05/26/19 [History] Montelukast Sodium [Singulair] 10 mg PO BEDTIME 05/26/19 [History] Multivit,Calc,Mins/Iron/Folic [Women's Daily Formula Caplet] 1 tab PO DAILY [History] Multivitamin with Minerals [Hair, Skin and Nails] 3 tab PO DAILY 05/26/19 [ History] Ondansetron [Zofran ODT] 4 mg PO Q6H PRN #20 tab.dis 09/04/19 [Rx] Past Medical History HEENT History: Reports: Allergic Rhinitis Cardiovascular History: Reports: Hypertension Respiratory History: Reports: Asthma, Other (See Below) Other Respiratory History: trachea stenosis, spastic trachea Musculoskeletal History: Reports: Arthritis Other Musculoskeletal History: arthritis Neurological History: Reports: Migraines Psychiatric History: Reports: Depression Endocrine/Metabolic History: Reports: Obesity/BMI 30+ - Past Surgical History HEENT Surgical History: Reports: Adenoidectomy, Myringotomy w Tube(s), Oral Surgery, Polypectomy GI Surgical History: Reports: Cholecystectomy, Hernia, Inguinal Female Surgical History: Reports: D&C, Hysterectomy Social & Family History - Tobacco Use Smoking Status *Q: Never Smoker - Caffeine Use Caffeine Use: Reports: None - Recreational Drug Use Recreational Drug Use: No - Living Situation & Occupation Living situation: Reports: , with Family (Mother, 3 kids) Occupation: Unemployed ED ROS GENERAL - Review of Systems Review Of Systems: Comprehensive ROS is negative, except as noted in HPI. ED EXAM, GENERAL - Physical Exam Exam: See Below Exam Limited By: No Limitations General Appearance: Alert, WD/WN, No Apparent Distress Respiratory/Chest: No Accessory Muscle Use, Chest Non-Tender, Respiratory Distress (Mild), Wheezing (Expiratory throughout.) Cardiovascular: Normal Peripheral Pulses, Regular Rate, Rhythm, No Edema, No Gallop, No JVD, No Murmur, No Rub Neurological: Alert, Oriented, CN II-XII Intact, Normal Cognition, Normal Gait, Normal Reflexes, No Motor/Sensory Deficits Psychiatric: Normal Affect, Normal Mood Skin Exam: Warm, Dry, Intact, Normal Color, No Rash Course - Vital Signs Last Recorded V/S: Last Vital Signs Temp 97.7 F 10/16/19 15:28 Pulse 112 H 10/16/19 15:28 Resp 22 H 10/16/19 15:28 BP 134/92 H 10/16/19 15:28 Pulse Ox 96 10/16/19 16:09 - Orders/Labs/Meds Orders: Active Orders 24 hr Category Date Time Status RT Aerosol Therapy [RC] ASDIRECTED Care 10/16/19 15:30 Active RT Aerosol Therapy [RC] ASDIRECTED Care 10/16/19 16:09 Active Meds: Medications Discontinued Medications Generic Name Dose Route Start Last Admin Trade Name Freq PRN Reason Stop Dose Admin Albuterol/Ipratropium 3 ml 10/16/19 15:30 10/16/19 15:34 Duoneb 3.0-0.5 Mg/3 Ml NEB 10/16/19 15:31 3 ml ONETIME ONE Administration Dexamethasone 10 mg 10/16/19 16:10 10/16/19 16:15 Dexamethasone IM 10/16/19 16:11 10 mg ONETIME ONE Administration Racepinephrine 0.5 ml 10/16/19 16:09 10/16/19 16:17 S-2 2.25% NEB 10/16/19 16:10 0.5 ml ONETIME ONE Administration Sodium Chloride 3 ml 10/16/19 16:09 10/16/19 16:17 Sodium Chloride 0.9% INH 3 ml ASDIRECTED PRN Administration mix with racepinephrine neb - Re-Assessments/Exams Free Text/Narrative Re-Assessment/Exam: On presentation, patient was in mild respiratory distress. Audible expiratory wheeze. DuoNeb treatment was completed. After this the wheeze had resolved and her lungs, however she does still have audible upper respiratory stridor. Patient verbalized that her chest did not feel so "tight "after the neb treatment, however she still feels like her upper airway is narrowed. I have ordered a two-view chest x-ray, racemic epi neb, and injection of dexamethasone. Oxygen saturations have been normal at 96 to 100% on room air. Blood pressure in the ER is normal at 134/92. 10/16/19 16:55 Chest x-ray was negative for any acute findings. Patient does feel much better after the epinephrine treatment. States that she can breathe again and that she no longer feels the "whistling" when she breathes. States that the "lump in her throat" has improved as well. She feels comfortable to go home at this time. Recommend that she follow-up with her nutrition teacher for long-term treatment options. Discharge instructions as documented. Departure - Departure Time of Disposition: 16:56 Disposition: Home, Self-Care 01 Condition: Fair Clinical Impression: Dyspnea Qualifiers: Dyspnea type: shortness of breath Qualified Code(s): R06.02 - Shortness of breath - Discharge Information *PRESCRIPTION DRUG MONITORING PROGRAM REVIEWED*: No *COPY OF PRESCRIPTION DRUG MONITORING REPORT IN PATIENT HERMINIA: No Instructions: Shortness of Breath, Adult Referrals: Brian Cox MD [Primary Care Provider] - Forms: ED Department Discharge, ED Return to Work/School Form Additional Instructions: You were seen in the emergency department today for shortness of breath and wheezing. While in the emergency department you received a DuoNeb treatment, a racemic epi nebulizer, and an injection of dexamethasone. Chest x-ray was also completed. Chest x-ray was normal with no signs of pneumonia. You verbalize of these treatments did significantly improve your respiratory distress. As we discussed, it will take 3 to 4 hours for the dexamethasone to take full effect. Recommend that you contact your nutrition teacher Friday morning to discuss today' s occurrences and a possible long-term treatment for the symptoms. Continue to use your albuterol and steroid nebulizer as needed. If you should experience any worsening symptoms, please do not hesitate to return to the emergency department. Sepsis Event Note - Evaluation Sepsis Screening Result: No Definite Risk - Focused Exam Vital Signs: Vital Signs Temp Pulse Resp BP Pulse Ox Pulse Ox 10/16/19 16:09 96 10/16/19 15:30 98 10/16/19 15:28 97.7 F 112 H 22 H 134/92 H 97 Date Exam was Performed: 10/17/19 Time Exam was Performed: 00:02 - My Orders Last 24 Hours: My Active Orders 10/16/19 15:30 RT Aerosol Therapy [RC] ASDIRECTED 10/16/19 16:09 RT Aerosol Therapy [RC] ASDIRECTED - Assessment/Plan Last 24 Hours: My Active Orders 10/16/19 15:30 RT Aerosol Therapy [RC] ASDIRECTED 10/16/19 16:09 RT Aerosol Therapy [RC] ASDIRECTED
--- NOTE | 2019-10-16 17:39 | CR ---
Chest: 2 views of the chest were obtained. Comparison: Prior chest x-ray of 09/04/19. Heart size is normal. Tortuous thoracic aorta is seen. Lungs are clear with no acute parenchymal change. Slight degenerative change is noted within the spine. Mild spurring is seen within the spine. Impression: 1. Nothing acute is seen on 2 view chest x-ray. Diagnostic code #1 Study was dictated in [place] Standard Time
== END 2019-10-16 17:16 | disposition home or self-care (01) ==
LOC: JD.ED 15:21
DX: R06.02 Shortness of breath (principal); I10 Essential (primary) hypertension; J45.909 Unspecified asthma, uncomplicated; F32.9 Major depressive disorder, single episode, unspecified; E66.9 Obesity, unspecified; Z88.5 Allergy status to narcotic agent; Z79.899 Other long term (current) drug therapy; Z68.41 Body mass index [BMI] 40.0-44.9, adult
CPT/HCPCS: 71046; 94640; 96372; 99285; A9270; J1100; 99283; J7620-GY

== ENCOUNTER 2019-12-15 16:33 | Emergency (ER) | payer MEDICAID ==
[2019-12-15] MEDS ORDERED: Albuterol/Ipratropium 3.0-0.5 MG/3 ML Neb Soln NEB ONE (17:05)
[2019-12-15] MEDS ORDERED: predniSONE 20 MG Tab PO ONE (17:05)
--- NOTE | 2019-12-15 17:12 | EDM.PDOC ---
ED HPI GENERAL MEDICAL PROBLEM - General Chief Complaint: Respiratory Problem Stated Complaint: SOB Time Seen by Provider: 12/15/19 16:44 Source of Information: Reports: Patient History Limitations: Reports: No Limitations - History of Present Illness INITIAL COMMENTS - FREE TEXT/NARRATIVE: The patient presents with a cough and shortness of breath. This has been going on for a few days. She has a history of asthma and she feels she is having an asthma exacerbation and now pneumonia or COVID 19. She has no fever. She has no chest pain. She has been using a neb and inhaler. Her peak flows have been about 200 and that is the limit that her well logging mud analysis captain recommended she seek treatment. She has no abdominal pain, nausea or vomiting. Onset: Gradual Duration: Day(s): Severity: Moderate Improves with: Reports: None Worsens with: Reports: None Associated Symptoms: Reports: Shortness of Breath. Denies: Chest Pain, Cough, Fever/Chills, Headaches, Nausea/Vomiting Headache Pain Score (Numeric/FACES): 3 - Related Data Allergies Allergy/AdvReac Type Severity Reaction Status Date / Time codeine Allergy Airway Verified 12/15/19 16:46 Tightness Home Meds: Home Meds Meclizine [Antivert] 25 mg PO TID PRN #30 tab 11/04/17 [Rx] Cetirizine [ZyrTEC] 10 mg PO DAILY 03/06/18 [History] Metoprolol Succinate 50 mg PO DAILY 03/06/18 [History] Albuterol Sulfate [Proair Respiclick] 2 puff IH Q4H 05/26/19 [History] Celecoxib [CeleBREX] 200 mg PO DAILY 05/26/19 [History] Cyclobenzaprine [Flexeril] 10 mg PO BEDTIME 05/26/19 [History] Gabapentin [Neurontin] 100 mg PO TID 05/26/19 [History] Montelukast Sodium [Singulair] 10 mg PO BEDTIME 05/26/19 [History] Multivit,Calc,Mins/Iron/Folic [Women's Daily Formula Caplet] 1 tab PO DAILY [History] Multivitamin with Minerals [Hair, Skin and Nails] 3 tab PO DAILY 05/26/19 [ History] Ondansetron [Zofran ODT] 4 mg PO Q6H PRN #20 tab.dis 09/04/19 [Rx] predniSONE [Prednisone] 40 mg PO DAILY #10 tablet 12/15/19 [Rx] Past Medical History HEENT History: Reports: Allergic Rhinitis Cardiovascular History: Reports: Hypertension Respiratory History: Reports: Asthma, Other (See Below) Other Respiratory History: trachea stenosis, spastic trachea Musculoskeletal History: Reports: Arthritis Other Musculoskeletal History: arthritis Neurological History: Reports: Migraines Psychiatric History: Reports: Depression Endocrine/Metabolic History: Reports: Obesity/BMI 30+ - Past Surgical History HEENT Surgical History: Reports: Adenoidectomy, Myringotomy w Tube(s), Oral Surgery, Polypectomy GI Surgical History: Reports: Cholecystectomy, Hernia, Inguinal Female Surgical History: Reports: D&C, Hysterectomy Social & Family History - Tobacco Use Smoking Status *Q: Never Smoker Second Hand Smoke Exposure: No - Caffeine Use Caffeine Use: Reports: None - Recreational Drug Use Recreational Drug Use: No - Living Situation & Occupation Living situation: Reports: , with Family (Mother, 3 kids) Occupation: Unemployed ED ROS GENERAL - Review of Systems Review Of Systems: See Below Constitutional: Reports: No Symptoms HEENT: Reports: No Symptoms Respiratory: Reports: Shortness of Breath, Cough Cardiovascular: Reports: No Symptoms Endocrine: Reports: No Symptoms GI/Abdominal: Reports: No Symptoms : Reports: No Symptoms ED EXAM, GENERAL - Physical Exam Exam: See Below Exam Limited By: No Limitations General Appearance: Alert, No Apparent Distress Ears: Normal External Exam Nose: Normal Inspection Head: Atraumatic, Normocephalic Neck: Normal Inspection Respiratory/Chest: No Respiratory Distress, Lungs Clear, Normal Breath Sounds Cardiovascular: Regular Rate, Rhythm, No Edema, No Murmur GI/Abdominal: Soft, Non-Tender, No Organomegaly, No Mass Back Exam: Normal Inspection Course - Vital Signs Last Recorded V/S: Last Vital Signs Temp 97.3 F 12/15/19 16:43 Pulse 94 12/15/19 16:43 Resp 20 12/15/19 16:43 BP 134/82 12/15/19 16:43 Pulse Ox 100 12/15/19 17:05 - Orders/Labs/Meds Orders: Active Orders 24 hr Category Date Time Status Cardiac Monitoring [RC] . DIRECTED Care 12/15/19 17:04 Active EKG Documentation Completion [RC] ASDIRECTED Care 12/15/19 18:35 Active RT Aerosol Therapy [RC] ASDIRECTED Care 12/15/19 17:05 Active Chest 1V Frontal [CR] Stat Exams 12/15/19 17:04 Taken EKG 12 Lead [EK] Stat Ther 12/15/19 18:34 Ordered Labs: Laboratory Tests 12/15/19 12/15/19 12/15/19 Range/Units 17:24 17:24 17:24 WBC 8.28 (3.98-10.04) K/mm3 RBC 5.43 H (3.98-5.22) M/mm3 Hgb 15.3 (11.2-15.7) gm/dl Hct 46.0 H (34.1-44.9) % MCV 84.7 (79.4-94.8) fl MCH 28.2 (25.6-32.2) pg MCHC 33.3 (32.2-35.5) g/dl RDW Std Deviation 40.9 (36.4-46.3) fL Plt Count 393 H (182-369) K/mm3 MPV 9.0 L (9.4-12.3) fl Neut % (Auto) 74.7 H (34.0-71.1) % Lymph % (Auto) 18.8 L (19.3-51.7) % [place] % (Auto) 5.1 (4.7-12.5) % Eos % (Auto) 1.0 (0.7-5.8) Baso % (Auto) 0.2 (0.1-1.2) % Neut # (Auto) 6.18 H (1.56-6.13) K/mm3 Lymph # (Auto) 1.56 (1.18-3.74) K/mm3 [place] # (Auto) 0.42 H (0.24-0.36) K/mm3 Eos # (Auto) 0.08 (0.04-0.36) K/mm3 Baso # (Auto) 0.02 (0.01-0.08) K/mm3 Sodium 139 (136-145) mEq/L Potassium 4.6 (3.5-5.1) mEq/L Chloride 105 (98-107) mEq/L Carbon Dioxide 28 (21-32) mEq/L Anion Gap 10.6 (5-15) BUN 16 (7-18) mg/dL Creatinine 1.0 (0.55-1.02) mg/dL Est Cr Clr Drug Dosing 60.06 mL/min Estimated GFR (MDRD) 59 (>60) mL/min BUN/Creatinine Ratio 16.0 (14-18) Glucose 98 (74-106) mg/dL Calcium 9.0 (8.5-10.1) mg/dL Total Bilirubin 0.3 (0.2-1.0) mg/dL AST 17 (15-37) U/L ALT 32 (14-59) U/L Alkaline Phosphatase 71 (46-116) U/L Troponin I < 0.017 (0.00-0.056) ng/mL Total Protein 7.0 (6.4-8.2) g/dl Albumin 3.4 (3.4-5.0) g/dl Globulin 3.6 gm/dL Albumin/Globulin Ratio 0.9 L (1-2) TSH 3rd Generation 1.574 (0.358-3.74) uIU/mL Meds: Medications Discontinued Medications Generic Name Dose Route Start Last Admin Trade Name Freq PRN Reason Stop Dose Admin Albuterol/Ipratropium 3 ml 12/15/19 17:05 12/15/19 17:34 Duoneb 3.0-0.5 Mg/3 Ml NEB 12/15/19 17:06 3 ml ONETIME ONE Administration Prednisone 40 mg 12/15/19 17:05 12/15/19 17:45 Prednisone PO 12/15/19 17:06 40 mg ONETIME ONE Administration - Re-Assessments/Exams Free Text/Narrative Re-Assessment/Exam: 12/15/19 17:12 I ordered labs, CXR, duoneb and prednisone 40mg PO. 12/15/19 18:36 Her CXR looks good. Her CBC and CMP look good. Her TSH is normal. She feels better now. She says for the past 2 months this has been a problem. She will also get some chest tightness and shortness of breath with exertion. This could all be explained by her asthma but I am concerned this could be her heart. I ordered an EKG and troponin. 12/15/19 18:57 Her EKG shows a NSR with no acute changes. Her troponin is negative. I will put in an order for a stress test. Departure - Departure Time of Disposition: 19:00 Disposition: Home, Self-Care 01 Condition: Good Clinical Impression: Chest pain on exertion, Shortness of breath on exertion Asthma exacerbation Qualifiers: Asthma severity: moderate Asthma persistence: unspecified Qualified Code(s): J45.901 - Unspecified asthma with (acute) exacerbation - Discharge Information *PRESCRIPTION DRUG MONITORING PROGRAM REVIEWED*: Not Applicable *COPY OF PRESCRIPTION DRUG MONITORING REPORT IN PATIENT HERMINIA: Not Applicable Prescriptions: predniSONE [Prednisone] 40 mg PO DAILY #10 tablet Referrals: PCP,Not In Area [Primary Care Provider] - Brian Cox MD [Physician] - 1 Week Forms: ED Department Discharge Additional Instructions: Take your medications as prescribed. Take prednisone 40mg daily for 5 days. I have ordered a stress test for you. Someone will call you with a date and time and instructions. Sepsis Event Note - Evaluation Sepsis Screening Result: No Definite Risk - Focused Exam Vital Signs: Vital Signs Temp Pulse Resp BP Pulse Ox Pulse Ox 12/15/19 17:05 100 12/15/19 16:43 97.3 F 94 20 134/82 100 Date Exam was Performed: 12/15/19 Time Exam was Performed: 18:57 - My Orders Last 24 Hours: My Active Orders 12/15/19 17:04 Cardiac Monitoring [RC] . DIRECTED Chest 1V Frontal [CR] Stat 12/15/19 17:05 RT Aerosol Therapy [RC] ASDIRECTED 12/15/19 18:34 EKG 12 Lead [EK] Stat 12/15/19 18:35 EKG Documentation Completion [RC] ASDIRECTED - Assessment/Plan Last 24 Hours: My Active Orders 12/15/19 17:04 Cardiac Monitoring [RC] . DIRECTED Chest 1V Frontal [CR] Stat 12/15/19 17:05 RT Aerosol Therapy [RC] ASDIRECTED 12/15/19 18:34 EKG 12 Lead [EK] Stat 12/15/19 18:35 EKG Documentation Completion [RC] ASDIRECTED
--- NOTE | 2019-12-16 07:16 | CR ---
Chest: Portable view of the chest was obtained. Comparison: Prior chest x-ray of 09/04/19. Heart size and mediastinum are normal. Lungs are clear with no acute parenchymal change. Bony structures are unremarkable. Impression: 1. Nothing acute is appreciated on portable chest x-ray. Diagnostic code #1 This report was dictated in [facility]T
== END 2019-12-15 19:16 | disposition home or self-care (01) ==
LOC: JD.ED 16:33
DX: J45.901 Unspecified asthma with (acute) exacerbation (principal); I10 Essential (primary) hypertension; J45.909 Unspecified asthma, uncomplicated; M19.90 Unspecified osteoarthritis, unspecified site; E66.9 Obesity, unspecified; Z88.5 Allergy status to narcotic agent; Z79.899 Other long term (current) drug therapy; Z68.41 Body mass index [BMI] 40.0-44.9, adult
CPT/HCPCS: 36415; 71045; 80053; 84443; 84484; 85025; 93005; 94640; 99285; J7512; 93010; 99283; J7620-GY

== ENCOUNTER 2019-12-23 16:33 | Emergency (ER) | payer MEDICAID ==
[2019-12-23] MEDS ORDERED: Sodium Chloride 0.9% 10 ML Syringe FLUSH PRN (17:09)
[2019-12-23] MEDS ORDERED: Albuterol/Ipratropium 3.0-0.5 MG/3 ML Neb Soln NEB ONE (17:10)
--- NOTE | 2019-12-23 18:30 | EDM.PDOC ---
ED HPI GENERAL MEDICAL PROBLEM - General Chief Complaint: Chest Pain Stated Complaint: CHEST PAIN Time Seen by Provider: 12/23/19 16:54 Source of Information: Reports: Patient History Limitations: Reports: No Limitations - History of Present Illness INITIAL COMMENTS - FREE TEXT/NARRATIVE: The patient presents with chest pain. This started this morning before her echocardiogram. She was in over a week ago for shortness of breath and chest pain. She had a stress test on the and it showed a lower EF of 44%. She had a echocardiogram today and that made her pain worse. It hurts worse to take a deep breath and push on her chest. The pain is in the mid chest. She has shortness of breath but that is normal for her with her asthma. She has no fever, chills, cough, congestion, runny nose, abdominal pain, nausea or vomiting. She has no swelling or pain in her legs. She has no history of DVT or PE. Onset: Gradual Duration: Hour(s): Location: Reports: Chest Quality: Reports: Sharp Severity: Moderate Improves with: Reports: None Worsens with: Reports: None Associated Symptoms: Reports: Chest Pain, Shortness of Breath. Denies: Confusion, Cough, Fever/Chills, Headaches, Nausea/Vomiting Chest Pain Score (Numeric/FACES): 9 - Related Data Allergies Allergy/AdvReac Type Severity Reaction Status Date / Time codeine Allergy Airway Verified 12/15/19 16:46 Tightness Home Meds: Home Meds Meclizine [Antivert] 25 mg PO TID PRN #30 tab 11/04/17 [Rx] Cetirizine [ZyrTEC] 10 mg PO DAILY 03/06/18 [History] Metoprolol Succinate 50 mg PO DAILY 03/06/18 [History] Albuterol Sulfate [Proair Respiclick] 2 puff IH Q4H 05/26/19 [History] Celecoxib [CeleBREX] 200 mg PO DAILY 05/26/19 [History] Cyclobenzaprine [Flexeril] 10 mg PO BEDTIME 05/26/19 [History] Gabapentin [Neurontin] 100 mg PO TID 05/26/19 [History] Montelukast Sodium [Singulair] 10 mg PO BEDTIME 05/26/19 [History] Multivit,Calc,Mins/Iron/Folic [Women's Daily Formula Caplet] 1 tab PO DAILY [History] Multivitamin with Minerals [Hair, Skin and Nails] 3 tab PO DAILY 05/26/19 [ History] Ondansetron [Zofran ODT] 4 mg PO Q6H PRN #20 tab.dis 09/04/19 [Rx] predniSONE [Prednisone] 40 mg PO DAILY #10 tablet 12/15/19 [Rx] Past Medical History HEENT History: Reports: Allergic Rhinitis Cardiovascular History: Reports: Hypertension Respiratory History: Reports: Asthma, Other (See Below) Other Respiratory History: trachea stenosis, spastic trachea Musculoskeletal History: Reports: Arthritis Other Musculoskeletal History: arthritis Neurological History: Reports: Migraines Psychiatric History: Reports: Depression Endocrine/Metabolic History: Reports: Obesity/BMI 30+ - Past Surgical History HEENT Surgical History: Reports: Adenoidectomy, Myringotomy w Tube(s), Oral Surgery, Polypectomy GI Surgical History: Reports: Cholecystectomy, Hernia, Inguinal Female Surgical History: Reports: D&C, Hysterectomy Social & Family History - Tobacco Use Smoking Status *Q: Never Smoker - Caffeine Use Caffeine Use: Reports: Coffee - Recreational Drug Use Recreational Drug Use: No - Living Situation & Occupation Living situation: Reports: , with Family (Mother, 3 kids) Occupation: Unemployed ED ROS GENERAL - Review of Systems Review Of Systems: See Below Constitutional: Reports: No Symptoms HEENT: Reports: No Symptoms Respiratory: Reports: Shortness of Breath Cardiovascular: Reports: Chest Pain Endocrine: Reports: No Symptoms GI/Abdominal: Reports: No Symptoms : Reports: No Symptoms ED EXAM, GENERAL - Physical Exam Exam: See Below Exam Limited By: No Limitations General Appearance: Alert, No Apparent Distress Ears: Normal External Exam Nose: Normal Inspection Head: Atraumatic, Normocephalic Neck: Normal Inspection Respiratory/Chest: No Respiratory Distress, Lungs Clear, Normal Breath Sounds Cardiovascular: Regular Rate, Rhythm, No Edema, No Murmur GI/Abdominal: Soft, Non-Tender, No Organomegaly, No Mass Back Exam: Normal Inspection Extremities: Normal Inspection EKG INTERPRETATION EKG Date: 12/23/19 Time: 17:17 Rhythm: NSR Rate (Beats/Min): 78 [place]: Normal P-Wave: Present QRS: Normal ST-T: Normal QT: Normal Course - Vital Signs Last Recorded V/S: Last Vital Signs Temp 98.6 F 05/21/20 16:58 Pulse 87 12/23/19 16:58 Resp 19 12/23/19 16:58 BP 143/96 H 12/23/19 16:58 Pulse Ox 100 12/23/19 17:10 - Orders/Labs/Meds Orders: Active Orders 24 hr Category Date Time Status Cardiac Monitoring [RC] . DIRECTED Care 12/23/19 17:09 Active EKG Documentation Completion [RC] STAT Care 12/23/19 17:09 Active Peripheral IV Care [RC] . DIRECTED Care 12/23/19 17:09 Active RT Aerosol Therapy [RC] ASDIRECTED Care 12/23/19 17:10 Active Chest 1V Frontal [CR] Stat Exams 12/23/19 17:10 Taken Sodium Chloride 0.9% [Saline Flush] Med 12/23/19 17:09 Active 10 ml FLUSH ASDIRECTED PRN Peripheral IV Insertion Adult [OM.PC] Stat Oth 12/23/19 17:09 Ordered Medication Orders Sodium Chloride (Saline Flush) 10 ml FLUSH ASDIRECTED PRN PRN Reason: Keep Vein Open Labs: Laboratory Tests 12/23/19 12/23/19 12/23/19 Range/Units 17:40 17:40 17:40 WBC 13.70 H (3.98-10.04) K/mm3 RBC 5.30 H (3.98-5.22) M/mm3 Hgb 15.0 (11.2-15.7) gm/dl Hct 45.2 H (34.1-44.9) % MCV 85.3 (79.4-94.8) fl MCH 28.3 (25.6-32.2) pg MCHC 33.2 (32.2-35.5) g/dl RDW Std Deviation 40.6 (36.4-46.3) fL Plt Count 435 H (182-369) K/mm3 MPV 8.6 L (9.4-12.3) fl Neut % (Auto) 83.8 H (34.0-71.1) % Lymph % (Auto) 12.6 L (19.3-51.7) % [place] % (Auto) 2.8 L (4.7-12.5) % Eos % (Auto) 0.2 L (0.7-5.8) Baso % (Auto) 0.2 (0.1-1.2) % Neut # (Auto) 11.46 H (1.56-6.13) K/mm3 Lymph # (Auto) 1.73 (1.18-3.74) K/mm3 [place] # (Auto) 0.39 H (0.24-0.36) K/mm3 Eos # (Auto) 0.03 L (0.04-0.36) K/mm3 Baso # (Auto) 0.03 (0.01-0.08) K/mm3 Manual Slide Review Normal smear D-Dimer, Quantitative 0.29 (0.19-0.50) mg/L Sodium 140 (136-145) mEq/L Potassium 4.6 (3.5-5.1) mEq/L Chloride 105 (98-107) mEq/L Carbon Dioxide 31 (21-32) mEq/L Anion Gap 8.6 (5-15) BUN 18 (7-18) mg/dL Creatinine 1.0 (0.55-1.02) mg/dL Est Cr Clr Drug Dosing 60.06 mL/min Estimated GFR (MDRD) 59 (>60) mL/min BUN/Creatinine Ratio 18.0 (14-18) Glucose 135 H (74-106) mg/dL Calcium 9.3 (8.5-10.1) mg/dL Total Bilirubin 0.3 (0.2-1.0) mg/dL AST 26 (15-37) U/L ALT 36 (14-59) U/L Alkaline Phosphatase 63 (46-116) U/L Troponin I < 0.017 (0.00-0.056) ng/mL Total Protein 6.7 (6.4-8.2) g/dl Albumin 3.5 (3.4-5.0) g/dl Globulin 3.2 gm/dL Albumin/Globulin Ratio 1.1 (1-2) Meds: Medications Generic Name Dose Route Start Last Admin Trade Name Freq PRN Reason Stop Dose Admin Sodium Chloride 10 ml 12/23/19 17:09 Saline Flush FLUSH ASDIRECTED PRN Keep Vein Open Discontinued Medications Generic Name Dose Route Start Last Admin Trade Name Freq PRN Reason Stop Dose Admin Albuterol/Ipratropium 3 ml 12/23/19 17:10 12/23/19 17:33 Duoneb 3.0-0.5 Mg/3 Ml NEB 12/23/19 17:11 3 ml ONETIME ONE Administration - Re-Assessments/Exams Free Text/Narrative Re-Assessment/Exam: 12/23/19 18:32 I ordered an EKG, CXR, and labs. Her EKG shows a NSR with no acute changes. Her CXR looks good. Her WBC is elevated at 13.7. She has been on steroids. Her CMP looks good. Her D-dimer and troponin are negative. Departure - Departure Time of Disposition: 18:45 Disposition: Home, Self-Care 01 Condition: Good Clinical Impression: Atypical chest pain Referrals: Brian Cox MD [Primary Care Provider] - 1 Week Forms: ED Department Discharge, ED Return to Work/School Form Additional Instructions: Take your medication as prescribed. Follow up with Dr Cox. Please return if you are worse. Sepsis Event Note - Evaluation Sepsis Screening Result: No Definite Risk - Focused Exam Vital Signs: Vital Signs Temp Pulse Resp BP Pulse Ox Pulse Ox 12/23/19 17:10 100 12/23/19 16:58 98.6 F 87 19 143/96 H 97 Date Exam was Performed: 12/23/19 Time Exam was Performed: 18:23 - My Orders Last 24 Hours: My Active Orders 12/23/19 17:09 Cardiac Monitoring [RC] . DIRECTED EKG Documentation Completion [RC] STAT Peripheral IV Care [RC] . DIRECTED Sodium Chloride 0.9% [Saline Flush] 10 ml FLUSH ASDIRECTED PRN Peripheral IV Insertion Adult [OM.PC] Stat 12/23/19 17:10 RT Aerosol Therapy [RC] ASDIRECTED Chest 1V Frontal [CR] Stat - Assessment/Plan Last 24 Hours: My Active Orders 12/23/19 17:09 Cardiac Monitoring [RC] . DIRECTED EKG Documentation Completion [RC] STAT Peripheral IV Care [RC] . DIRECTED Sodium Chloride 0.9% [Saline Flush] 10 ml FLUSH ASDIRECTED PRN Peripheral IV Insertion Adult [OM.PC] Stat 12/23/19 17:10 RT Aerosol Therapy [RC] ASDIRECTED Chest 1V Frontal [CR] Stat
--- NOTE | 2019-12-23 18:31 | CR ---
Chest: Portable view of the chest was obtained. Comparison: Previous chest x-ray of 12/15/19. Heart size is normal. Tortuous thoracic aorta is seen. Lungs are clear with no acute parenchymal change. Bony structures are unremarkable. Impression: 1. Nothing acute is appreciated on portable chest x-ray. Diagnostic code #1 This report was dictated in MDT
== END 2019-12-23 18:54 | disposition home or self-care (01) ==
LOC: JD.ED 16:33
DX: R07.89 Other chest pain (principal); I10 Essential (primary) hypertension; J45.909 Unspecified asthma, uncomplicated; M19.90 Unspecified osteoarthritis, unspecified site; E66.9 Obesity, unspecified; Z68.41 Body mass index [BMI] 40.0-44.9, adult; Z88.5 Allergy status to narcotic agent; Z79.899 Other long term (current) drug therapy
CPT/HCPCS: 36415; 71045; 71045-26; 80053; 84484; 85025; 85379; 93005; 93010; 94640; 99283; 99285-25; J7620-GY

== ENCOUNTER 2020-01-21 16:17 | Emergency (ER) | payer MEDICAID ==
[2020-01-21] MEDS ORDERED: Sodium Chloride 0.9% 10 ML Syringe FLUSH PRN (16:33)
--- NOTE | 2020-01-21 16:56 | CR ---
Chest: 2 views of the chest were obtained. Comparison: Prior chest x-ray of 12/23/19. Heart size is within normal limits. Tortuous thoracic aorta is seen. Lungs are clear with no acute parenchymal change. Scattered degenerative change is noted within the spine. Surgical clips are seen within the upper abdomen. Impression: 1. Nothing acute is seen on 2 view chest x-ray. Diagnostic code #2 Study was dictated in MDT
--- NOTE | 2020-01-21 17:12 | EDM.PDOC ---
ED HPI GENERAL MEDICAL PROBLEM - General Chief Complaint: Cardiovascular Problem Stated Complaint: CHEST PAIN Time Seen by Provider: 01/21/20 16:34 Source of Information: Reports: Patient, Old Records, RN Notes Reviewed History Limitations: Reports: No Limitations - History of Present Illness INITIAL COMMENTS - FREE TEXT/NARRATIVE: Patient is a 49-year-old female who presents to the ED for the evaluation of her mid central chest pain. Patient notes she has been having ongoing cardiac issues, her senior electronics engineer is Dr. Padilla at [facility] in [place]. Patient states that she had an appointment on Friday, and was placed on a Holter monitor for continued evaluation. Patient notes that , she pretty much slept all day, and today she got on her bicycle, and rode approximately 1/2-1 block, when she felt her heart racing, and was experiencing the chest pain. It was shortly after she got home and she was coming down, that she reported she got a call from the radiation monitor personnel, and they told her to come to the ER due to her rapid heart rate. The patient notes that her Fitbit watch did show that her heart rate was in the 180s during this time. She states that her heart felt as if it wanted to beat out of her chest. She is noticing a sharp stabbing pain like someone stabbing her with a sword. The patient states that she was told by her senior electronics engineer today as well to not take her metoprolol, and she is noticed some fluctuations in her blood pressure. Patient notes that she is feeling well otherwise, not having any cough/shortness of breath, fever/chills, nausea/vomiting/diarrhea. Patient states she took all of her medications as prescribed except for the metoprolol today. Old records show that she had a stress test done here at the end of December, and she had a ejection fraction of 44% however there was no ischemia noted on the stress test. Chest Pain Score (Numeric/FACES): 5 - Related Data Allergies Allergy/AdvReac Type Severity Reaction Status Date / Time codeine Allergy Airway Verified 01/21/20 16:26 Tightness Home Meds: Home Meds Meclizine [Antivert] 25 mg PO TID PRN #30 tab 11/04/17 [Rx] Cetirizine [ZyrTEC] 10 mg PO DAILY 03/06/18 [History] Metoprolol Succinate 50 mg PO DAILY 03/06/18 [History] Albuterol Sulfate [Proair Respiclick] 2 puff IH Q4H 05/26/19 [History] Celecoxib [CeleBREX] 200 mg PO DAILY 05/26/19 [History] Cyclobenzaprine [Flexeril] 10 mg PO BEDTIME 05/26/19 [History] Gabapentin [Neurontin] 100 mg PO TID 05/26/19 [History] Montelukast Sodium [Singulair] 10 mg PO BEDTIME 05/26/19 [History] Multivit,Calc,Mins/Iron/Folic [Women's Daily Formula Caplet] 1 tab PO DAILY 05/26/19 [History] Multivitamin with Minerals [Hair, Skin and Nails] 3 tab PO DAILY 05/26/19 [History] Ondansetron [Zofran ODT] 4 mg PO Q6H PRN #20 tab.dis 09/04/19 [Rx] predniSONE [Prednisone] 40 mg PO DAILY #10 tablet 12/15/19 [Rx] Past Medical History HEENT History: Reports: Allergic Rhinitis Cardiovascular History: Reports: Hypertension Respiratory History: Reports: Asthma, Other (See Below) Other Respiratory History: trachea stenosis, spastic trachea Musculoskeletal History: Reports: Arthritis Other Musculoskeletal History: arthritis Neurological History: Reports: Migraines Psychiatric History: Reports: Depression Endocrine/Metabolic History: Reports: Obesity/BMI 30+ - Past Surgical History HEENT Surgical History: Reports: Adenoidectomy, Myringotomy w Tube(s), Oral Surgery, Polypectomy GI Surgical History: Reports: Cholecystectomy, Hernia, Inguinal Female Surgical History: Reports: D&C, Hysterectomy Social & Family History - Tobacco Use Smoking Status *Q: Never Smoker Second Hand Smoke Exposure: No - Caffeine Use Caffeine Use: Reports: None - Recreational Drug Use Recreational Drug Use: No - Living Situation & Occupation Living situation: Reports: , with Family (Mother, 3 kids) Occupation: Unemployed ED ROS GENERAL - Review of Systems Review Of Systems: Comprehensive ROS is negative, except as noted in HPI. ED EXAM, GENERAL - Physical Exam Exam: See Below Exam Limited By: No Limitations General Appearance: Alert, WD/WN, No Apparent Distress, Anxious Eye Exam: Bilateral Eye: EOMI, Normal Inspection, PERRL Ears: Normal External Exam Nose: Normal Inspection Throat/Mouth: Normal Inspection, Normal Lips, Normal Teeth, Normal Gums, Normal Oropharynx, Normal Voice, No Airway Compromise Head: Atraumatic, Normocephalic Neck: Normal Inspection Respiratory/Chest: No Respiratory Distress, Lungs Clear, Normal Breath Sounds, No Accessory Muscle Use, Chest Non-Tender Cardiovascular: Normal Peripheral Pulses, Regular Rate, Rhythm, No Edema, No Murmur Peripheral Pulses: 3+: Radial (L), Radial (R) GI/Abdominal: Normal Bowel Sounds, Soft, Non-Tender, No Distention, No Mass Extremities: Normal Inspection, Normal Capillary Refill Neurological: Alert, Oriented, Normal Cognition, No Motor/Sensory Deficits Psychiatric: Normal Affect, Normal Mood, Anxious Skin Exam: Warm, Dry, Intact, Normal Color, No Rash EKG INTERPRETATION EKG Date: 01/21/20 Time: 16:24 Rhythm: NSR Rate (Beats/Min): 96 [place]: LAD-Left [place] Deviation (minimal -6) P-Wave: Present (?inverted in Lead III) QRS: Normal ST-T: Normal QT: Normal Comparison: No Change EKG Interpretation Comments: No obvious ischemia or acute ST changes noted, reviewed by myself and Dr. Evans. Course - Vital Signs Last Recorded V/S: Last Vital Signs Temp 97.8 F 01/21/20 16:20 Pulse 102 H 01/21/20 16:20 Resp 24 H 01/21/20 16:20 BP 161/97 H 01/21/20 16:20 Pulse Ox 99 01/21/20 16:20 - Orders/Labs/Meds Orders: Active Orders 24 hr Category Date Time Status EKG Documentation Completion [RC] STAT Care 01/21/20 16:33 Active Peripheral IV Care [RC] . DIRECTED Care 01/21/20 16:34 Active Sodium Chloride 0.9% [Saline Flush] Med 01/21/20 16:33 Active 10 ml FLUSH ASDIRECTED PRN Peripheral IV Insertion Adult [OM.PC] Stat Oth 01/21/20 16:33 Ordered Medication Orders Sodium Chloride (Saline Flush) 10 ml FLUSH ASDIRECTED PRN PRN Reason: Keep Vein Open Last Admin: 01/21/20 16:36 Dose: 10 ml Documented by: BEE Labs: Laboratory Tests 01/21/20 01/21/20 01/21/20 Range/Units 14:25 14:25 14:25 WBC 9.85 (3.98-10.04) K/mm3 RBC 5.53 H (3.98-5.22) M/mm3 Hgb 15.5 (11.2-15.7) gm/dl Hct 47.0 H (34.1-44.9) % MCV 85.0 (79.4-94.8) fl MCH 28.0 (25.6-32.2) pg MCHC 33.0 (32.2-35.5) g/dl RDW Std Deviation 40.0 (36.4-46.3) fL Plt Count 420 H (182-369) K/mm3 MPV 8.9 L (9.4-12.3) fl Neutrophils % (Manual) 74 H (40-60) % Band Neutrophils % 0 (0-10) % Lymphocytes % (Manual) 13 L (20-40) % Atypical Lymphs % 0 % Monocytes % (Manual) 10 (2-10) % Eosinophils % (Manual) 2 (0.7-5.8) % Basophils % (Manual) 1 (0.1-1.2) Platelet Estimate Increased RBC Morph Comment Normal PT 10.0 (9.7-12.0) SECONDS INR 0.93 APTT 27 (22-31) SECONDS Sodium 141 (136-145) mEq/L Potassium 4.2 (3.5-5.1) mEq/L Chloride 103 (98-107) mEq/L Carbon Dioxide 30 (21-32) mEq/L Anion Gap 12.2 (5-15) BUN 18 (7-18) mg/dL Creatinine 1.0 (0.55-1.02) mg/dL Est Cr Clr Drug Dosing 60.06 mL/min Estimated GFR (MDRD) 59 (>60) mL/min BUN/Creatinine Ratio 18.0 (14-18) Glucose 104 (74-106) mg/dL Calcium 9.2 (8.5-10.1) mg/dL Magnesium 2.2 (1.8-2.4) mg/dl Total Bilirubin 0.3 (0.2-1.0) mg/dL AST 16 (15-37) U/L ALT 32 (14-59) U/L Alkaline Phosphatase 73 (46-116) U/L Troponin I < 0.017 (0.00-0.056) ng/mL NT-Pro-B Natriuret Pep (0-125) pg/mL Total Protein 7.3 (6.4-8.2) g/dl Albumin 3.7 (3.4-5.0) g/dl Globulin 3.6 gm/dL Albumin/Globulin Ratio 1.0 (1-2) /19/20 Range/Units 14:25 WBC (3.98-10.04) K/mm3 RBC (3.98-5.22) M/mm3 Hgb (11.2-15.7) gm/dl Hct (34.1-44.9) % MCV (79.4-94.8) fl MCH (25.6-32.2) pg MCHC (32.2-35.5) g/dl RDW Std Deviation (36.4-46.3) fL Plt Count (182-369) K/mm3 MPV (9.4-12.3) fl Neutrophils % (Manual) (40-60) % Band Neutrophils % (0-10) % Lymphocytes % (Manual) (20-40) % Atypical Lymphs % % Monocytes % (Manual) (2-10) % Eosinophils % (Manual) (0.7-5.8) % Basophils % (Manual) (0.1-1.2) Platelet Estimate RBC Morph Comment PT (9.7-12.0) SECONDS INR APTT (22-31) SECONDS Sodium (136-145) mEq/L Potassium (3.5-5.1) mEq/L Chloride (98-107) mEq/L Carbon Dioxide (21-32) mEq/L Anion Gap (5-15) BUN (7-18) mg/dL Creatinine (0.55-1.02) mg/dL Est Cr Clr Drug Dosing mL/min Estimated GFR (MDRD) (>60) mL/min BUN/Creatinine Ratio (14-18) Glucose (74-106) mg/dL Calcium (8.5-10.1) mg/dL Magnesium (1.8-2.4) mg/dl Total Bilirubin (0.2-1.0) mg/dL AST (15-37) U/L ALT (14-59) U/L Alkaline Phosphatase (46-116) U/L Troponin I (0.00-0.056) ng/mL NT-Pro-B Natriuret Pep 45 (0-125) pg/mL Total Protein (6.4-8.2) g/dl Albumin (3.4-5.0) g/dl Globulin gm/dL Albumin/Globulin Ratio (1-2) Meds: Medications Generic Name Dose Route Start Last Admin Trade Name Freq PRN Reason Stop Dose Admin Sodium Chloride 10 ml 01/21/20 16:33 01/21/20 16:36 Saline Flush FLUSH 10 ml ASDIRECTED PRN Administration Keep Vein Open - Re-Assessments/Exams Free Text/Narrative Re-Assessment/Exam: 01/21/20 17:12 Patient presents to the ED for the evaluation of her chest pain and rapid heart rate. Patient is mildly tacky at initial time of triage 102 bpm, blood pressure was mildly elevated at 161/97, but on initial exam, her blood pressure was 124 systolically, and her heart rate was in the upper 90s. EKG demonstrated no acute ischemic change with normal sinus rhythm at 96 bpm. Chest x-ray was also within normal limits. Patient will have some labs drawn to rule out other cardiac etiology. Likely this is just a normal physiologic response to exercise. Patient is also known to have exercise-induced asthma as well. We will likely try to contact cardiology at [facility] for consultation after labs have resulted. Departure - Departure Time of Disposition: 18:01 Disposition: Home, Self-Care 01 Condition: Good Clinical Impression: Chest pain Qualifiers: Chest pain type: other chest pain Qualified Code(s): R07.89 - Other chest pain; R07.8 - Other chest pain Instructions: Nonspecific Chest Pain, Adult, [id number] Referrals: PCP,None [Primary Care Provider] - Forms: ED Department Discharge, ED Return to Work/School Form Additional Instructions: You were evaluated in the ER today for your mid central chest pain. Your evaluation in the ER demonstrated no acute cardiac etiology for this chest pain. I was able to contact the [facility] in [place], and she did read Dr. Matta's note to me, and he would like you to stop taking the metoprolol, and start the verapa mil for blood pressure control. The metoprolol is not very effective in people who take albuterol, due to the beta blocking properties of the medication. Recommend you go home, rest over the weekend, and call his office on Friday. You will be given a note to reflect this amount of time off from work. This is so you can take your verapamil and see how your body is going to handle this. If anything should change or worsen, please do not hesitate to return to the ER for evaluation. Sepsis Event Note (ED) - Evaluation Sepsis Screening Result: No Definite Risk - Focused Exam Vital Signs: Vital Signs Temp Pulse Resp BP Pulse Ox 01/21/20 16:20 97.8 F 102 H 24 H 161/97 H 99 - My Orders Last 24 Hours: My Active Orders 01/21/20 16:33 EKG Documentation Completion [RC] STAT Sodium Chloride 0.9% [Saline Flush] 10 ml FLUSH ASDIRECTED PRN Peripheral IV Insertion Adult [OM.PC] Stat 01/21/20 16:34 Peripheral IV Care [RC] . DIRECTED - Assessment/Plan Last 24 Hours: My Active Orders 01/21/20 16:33 EKG Documentation Completion [RC] STAT Sodium Chloride 0.9% [Saline Flush] 10 ml FLUSH ASDIRECTED PRN Peripheral IV Insertion Adult [OM.PC] Stat 01/21/20 16:34 Peripheral IV Care [RC] . DIRECTED
== END 2020-01-21 18:18 | disposition home or self-care (01) ==
LOC: JD.ED 16:17
DX: R07.89 Other chest pain (principal); J45.909 Unspecified asthma, uncomplicated; I10 Essential (primary) hypertension; M19.90 Unspecified osteoarthritis, unspecified site; F32.9 Major depressive disorder, single episode, unspecified; E66.9 Obesity, unspecified; Z68.41 Body mass index [BMI] 40.0-44.9, adult; Z88.5 Allergy status to narcotic agent; Z79.899 Other long term (current) drug therapy
CPT/HCPCS: 36415; 71046; 71046-26; 80053; 83735; 83880; 84484; 85007; 85027; 85610; 85730; 93005; 93010; 99283; 99285-25

== ENCOUNTER 2020-01-24 15:34 | Emergency (ER) | payer MEDICAID ==
--- NOTE | 2020-01-24 17:11 | CR ---
Chest: Portable view of the chest was obtained. Comparison: Prior chest x-ray of 01/21/20. Heart size and mediastinum are within normal limits. Tortuous thoracic aorta is again noted. Lungs are clear with no acute parenchymal change. Slight degenerative endplate spurring is noted within the spine. Impression: 1. Nothing acute is appreciated on portable chest x-ray. Diagnostic code #2 This report was dictated in MDT
--- NOTE | 2020-01-24 18:31 | EDM.PDOC ---
ED HPI GENERAL MEDICAL PROBLEM - General Chief Complaint: Chest Pain Stated Complaint: CHEST PAIN Time Seen by Provider: 01/24/20 18:05 Source of Information: Reports: Patient, Old Records, RN Notes Reviewed History Limitations: Reports: No Limitations - History of Present Illness INITIAL COMMENTS - FREE TEXT/NARRATIVE: Patient is a 49-year-old female who presents to the ED for evaluation of her substernal/Mid central chest pain. Patient states that the pain is the same pain she has been having, and it is radiating through to her back. Patient notes she did follow-up with Dr. Padilla, and he told her that she does has a rapid heart rate. She was started on Holter monitor and verapamil 180 mg daily, patient states that the verapamil has helped with the blood pressure, but she states that she is still having issues with the exertional chest pain and tachycardia. Patient states even walking from her bed to the shower; her heart rate shoots up into the 160s. States that when she walked up the stairs today, her heart rate shot up into the 170s, and was also 170s when she went to work. She states that she was excused from work, and while she was driving her heart rate did decrease into the 130s, but she states she was still sitting, and generally resting. She states when she got to the ER, her heart rate had decreased into the 112, and was 95 at time of triage. Patient's blood pressure is stable at 122/82, respiratory rate slightly increased at 21, O2 sats are 94% on room air. Patient does have a history of asthma, states she has taken all of her asthma medications as well. She denies any shortness of breath, or breathing difficulties. Patient states she just feels generally fatigued. Temperature is slightly elevated at the time of triage 99.1 �F, but otherwise she denies fevers at home. She states that she did call her new car inspector office today regarding her increased heart rate, and chest pain, and was told to come to the ER for management. Middle Chest Pain Score (Numeric/FACES): 6 - Related Data Allergies Allergy/AdvReac Type Severity Reaction Status Date / Time codeine Allergy Airway Verified 01/21/20 16:26 Tightness Home Meds: Home Meds Meclizine [Antivert] 25 mg PO TID PRN #30 tab 11/04/17 [Rx] Cetirizine [ZyrTEC] 10 mg PO DAILY 03/06/18 [History] Albuterol Sulfate [Proair Respiclick] 2 puff IH Q4H PRN 05/26/19 [History] Celecoxib [CeleBREX] 200 mg PO DAILY 05/26/19 [History] Cyclobenzaprine [Flexeril] 10 mg PO BEDTIME 05/26/19 [History] Gabapentin [Neurontin] 100 mg PO TID 05/26/19 [History] Montelukast Sodium [Singulair] 10 mg PO BEDTIME 05/26/19 [History] Multivit,Calc,Mins/Iron/Folic [Women's Daily Formula Caplet] 1 tab PO DAILY 05/26/19 [History] LORazepam [Ativan] 1 mg PO TID PRN #15 tab 01/24/20 [Rx] Verapamil HCl [Verapamil Sr] 180 mg PO DAILY 01/24/20 [History] Past Medical History HEENT History: Reports: Allergic Rhinitis Cardiovascular History: Reports: Hypertension Respiratory History: Reports: Asthma, Other (See Below) Other Respiratory History: trachea stenosis, spastic trachea Musculoskeletal History: Reports: Arthritis Other Musculoskeletal History: arthritis Neurological History: Reports: Migraines Psychiatric History: Reports: Anxiety, Depression Endocrine/Metabolic History: Reports: Obesity/BMI 30+ - Past Surgical History HEENT Surgical History: Reports: Adenoidectomy, Myringotomy w Tube(s), Oral Surgery, Polypectomy GI Surgical History: Reports: Cholecystectomy, Hernia, Inguinal Female Surgical History: Reports: D&C, Hysterectomy Social & Family History - Tobacco Use Smoking Status *Q: Never Smoker - Caffeine Use Caffeine Use: Reports: Coffee - Recreational Drug Use Recreational Drug Use: No - Living Situation & Occupation Living situation: Reports: , with Family (Mother, 3 kids) Occupation: Unemployed ED ROS GENERAL - Review of Systems Review Of Systems: Comprehensive ROS is negative, except as noted in HPI. ED EXAM, GENERAL - Physical Exam Exam: See Below Exam Limited By: No Limitations General Appearance: Alert, WD/WN, No Apparent Distress Ears: Normal External Exam Throat/Mouth: Normal Inspection, Normal Lips, Normal Teeth, Normal Gums, Normal Oropharynx, Normal Voice, No Airway Compromise Head: Atraumatic, Normocephalic Neck: Normal Inspection Respiratory/Chest: No Respiratory Distress, Lungs Clear, Normal Breath Sounds, No Accessory Muscle Use, Chest Non-Tender Cardiovascular: Normal Peripheral Pulses, Regular Rate, Rhythm, No Murmur Peripheral Pulses: 3+: Radial (L), Radial (R) GI/Abdominal: Normal Bowel Sounds Extremities: Normal Inspection, Normal Capillary Refill Neurological: Alert, Oriented, Normal Cognition, No Motor/Sensory Deficits Psychiatric: Normal Affect, Normal Mood Skin Exam: Warm, Dry, Intact, Normal Color, No Rash EKG INTERPRETATION EKG Date: 01/24/20 Time: 16:50 Rhythm: NSR Rate (Beats/Min): 91 [place]: LAD-Left [place] Deviation (-7 �) P-Wave: Present QRS: Normal ST-T: Normal QT: Prolonged (Minimally at 459) Comparison: No Change EKG Interpretation Comments: No obvious ischemia or acute ST changes noted, reviewed by myself and Dr. Evans. Course - Vital Signs Last Recorded V/S: Last Vital Signs Temp 99.1 F 01/24/20 16:00 Pulse 95 01/24/20 16:26 Resp 21 H 01/24/20 16:26 BP 122/82 01/24/20 16:26 Pulse Ox 94 L 01/24/20 16:26 - Orders/Labs/Meds Orders: Active Orders 24 hr Category Date Time Status EKG Documentation Completion [RC] STAT Care 01/24/20 16:43 Active Labs: Laboratory Tests 01/24/20 01/24/20 Range/Units 17:05 17:05 WBC 9.60 (3.98-10.04) K/mm3 RBC 5.46 H (3.98-5.22) M/mm3 Hgb 15.5 (11.2-15.7) gm/dl Hct 46.3 H (34.1-44.9) % MCV 84.8 (79.4-94.8) fl MCH 28.4 (25.6-32.2) pg MCHC 33.5 (32.2-35.5) g/dl RDW Std Deviation 39.8 (36.4-46.3) fL Plt Count 443 H (182-369) K/mm3 MPV 8.7 L (9.4-12.3) fl Neut % (Auto) 71.5 H (34.0-71.1) % Lymph % (Auto) 21.5 (19.3-51.7) % [place] % (Auto) 5.6 (4.7-12.5) % Eos % (Auto) 0.9 (0.7-5.8) Baso % (Auto) 0.2 (0.1-1.2) % Neut # (Auto) 6.86 H (1.56-6.13) K/mm3 Lymph # (Auto) 2.06 (1.18-3.74) K/mm3 [place] # (Auto) 0.54 H (0.24-0.36) K/mm3 Eos # (Auto) 0.09 (0.04-0.36) K/mm3 Baso # (Auto) 0.02 (0.01-0.08) K/mm3 Sodium 139 (136-145) mEq/L Potassium 4.2 (3.5-5.1) mEq/L Chloride 103 (98-107) mEq/L Carbon Dioxide 27 (21-32) mEq/L Anion Gap 13.2 (5-15) BUN 16 (7-18) mg/dL Creatinine 1.0 (0.55-1.02) mg/dL Est Cr Clr Drug Dosing 60.06 mL/min Estimated GFR (MDRD) 59 (>60) mL/min BUN/Creatinine Ratio 16.0 (14-18) Glucose 102 (74-106) mg/dL Calcium 9.6 (8.5-10.1) mg/dL Total Bilirubin 0.4 (0.2-1.0) mg/dL AST 18 (15-37) U/L ALT 32 (14-59) U/L Alkaline Phosphatase 75 (46-116) U/L Troponin I < 0.017 (0.00-0.056) ng/mL Total Protein 7.5 (6.4-8.2) g/dl Albumin 3.8 (3.4-5.0) g/dl Globulin 3.7 gm/dL Albumin/Globulin Ratio 1.0 (1-2) - Re-Assessments/Exams Free Text/Narrative Re-Assessment/Exam: 01/24/20 18:32 Patient presents to the ED for the evaluation of her ongoing chest pain and tachycardia. Laboratory evaluation was obtained at time of triage, there is no acute abnormalities appreciated on the EKG or within the labs themselves. Patient does relay that the pain is very similar to all the pain she is having in the past. I do believe there is a component of anxiety, that she is not admitting to although she says that she has no stress except for job stress. I am going to try to trial Ativan with her for 1 week to see if this does not help some of her symptoms. And have her follow-up with her it sales executive tomorrow, she states that they are going to call her to check up on her tomorrow. Departure - Departure Time of Disposition: 18:34 Disposition: Home, Self-Care 01 Condition: Good Clinical Impression: Atypical chest pain, Anxiety about health Prescriptions: LORazepam [Ativan] 1 mg PO TID PRN #15 tab PRN Reason: Anxiety Instructions: Nonspecific Chest Pain, Adult, [id number], Living With Anxiety Referrals: Brian Cox MD [Primary Care Provider] - Forms: ED Department Discharge Additional Instructions: You were evaluated in the ER today regarding your mid central chest pain. Laboratory evaluation demonstrates no acute abnormalities at today's visit. EKG is within normal limits, you are not having a heart attack at today's visit. Highly suspect a component of this can be due to stress or anxiety, we are trialing you on Ativan, 1 mg 3 times a day for the next week to see if this does not help some of your symptoms. Please follow-up with a new car inspector, when they call tomorrow for reevaluation and to make sure everything is getting better as expected. At any rate, please return to the ER at any time if her symptoms change or worsen. Sepsis Event Note (ED) - Evaluation Sepsis Screening Result: No Definite Risk - Focused Exam Vital Signs: Vital Signs Temp Pulse Resp BP Pulse Ox 01/24/20 16:26 95 21 H 122/82 94 L 01/24/20 16:00 99.1 F 96 20 128/82 95 - My Orders Last 24 Hours: My Active Orders 01/24/20 16:43 EKG Documentation Completion [RC] STAT - Assessment/Plan Last 24 Hours: My Active Orders 01/24/20 16:43 EKG Documentation Completion [RC] STAT
== END 2020-01-24 18:58 | disposition home or self-care (01) ==
LOC: JD.ED 15:34
DX: R07.89 Other chest pain (principal); F41.9 Anxiety disorder, unspecified; I10 Essential (primary) hypertension; J45.909 Unspecified asthma, uncomplicated; M19.90 Unspecified osteoarthritis, unspecified site; F32.9 Major depressive disorder, single episode, unspecified; E66.9 Obesity, unspecified; Z68.41 Body mass index [BMI] 40.0-44.9, adult; Z88.5 Allergy status to narcotic agent; Z79.899 Other long term (current) drug therapy
CPT/HCPCS: 36415; 71045; 71045-26; 80053; 84484; 85025; 93010; 99283; 99285-25

== ENCOUNTER 2020-06-01 17:35 | Emergency (ER) | payer MEDICAID ==
--- NOTE | 2020-06-01 18:24 | EDM.PDOC ---
ED HPI GENERAL MEDICAL PROBLEM - General Chief Complaint: General Stated Complaint: FALL,MULTIPLE INJURIES Time Seen by Provider: 06/01/20 17:51 Source of Information: Reports: Patient History Limitations: Reports: No Limitations - History of Present Illness INITIAL COMMENTS - FREE TEXT/NARRATIVE: The patient presents with right shoulder and knee pain, and left wrist and ankle pain. Her daughter is caring for someone's dog and the dog took after another dog and the patient ran after the dog and she tripped and fell and rolled. She has no headache. Her neck is a little stiff. She has no chest pain or abdominal pain. She has no numbness or weakness. Onset: Sudden Duration: Minutes: Location: Reports: Upper Extremity, Left (wrist), Upper Extremity, Right (shoulder), Lower Extremity, Left (ankle), Lower Extremity, Right (knee) Quality: Reports: Sharp Severity: Moderate Improves with: Reports: Immobilization Worsens with: Reports: Movement Context: Reports: Trauma (fell running after a dog) Associated Symptoms: Reports: No Other Symptoms Bilateral Generalized Pain Score (Numeric/FACES): 8 - Related Data Allergies Allergy/AdvReac Type Severity Reaction Status Date / Time bee venom protein (honey bee) Allergy Swelling Verified 06/01/20 17:47 codeine Allergy Airway Verified 06/01/20 17:47 Tightness Home Meds: Home Meds Meclizine [Antivert] 25 mg PO TID PRN #30 tab 11/04/17 [Rx] Cetirizine [ZyrTEC] 10 mg PO DAILY 03/06/18 [History] Albuterol Sulfate [Proair Respiclick] 2 puff IH Q4H PRN 05/26/19 [History] Cyclobenzaprine [Flexeril] 10 mg PO BEDTIME 05/26/19 [History] Gabapentin [Neurontin] 100 mg PO TID 05/26/19 [History] Montelukast Sodium [Singulair] 10 mg PO BEDTIME 05/26/19 [History] Verapamil HCl [Verapamil Sr] 180 mg PO DAILY 01/24/20 [History] Calcium Carb/Vitamin D3/Vit K1 [Calcium + D Soft Chewable Tab] 1 tab PO DAILY 06/01/20 [History] Cyanocobalamin (Vitamin B-12) [Vitamin B-12] 1 tab PO DAILY 06/01/20 [History] Iron,Carb/Vit C/Vit B12/Folic [Iron 100 Plus Tablet] 1 tab PO DAILY 06/01/20 [History] Past Medical History HEENT History: Reports: Allergic Rhinitis Cardiovascular History: Reports: Hypertension Respiratory History: Reports: Asthma, Other (See Below) Other Respiratory History: trachea stenosis, spastic trachea Musculoskeletal History: Reports: Arthritis Other Musculoskeletal History: arthritis Neurological History: Reports: Migraines Psychiatric History: Reports: Anxiety, Depression Endocrine/Metabolic History: Reports: Obesity/BMI 30+ - Past Surgical History HEENT Surgical History: Reports: Adenoidectomy, Myringotomy w Tube(s), Oral Surgery, Polypectomy GI Surgical History: Reports: Cholecystectomy, Hernia, Inguinal Female Surgical History: Reports: D&C, Hysterectomy Social & Family History - Caffeine Use Caffeine Use: Reports: Coffee - Living Situation & Occupation Living situation: Reports: , with Family (Mother, 3 kids) Occupation: Unemployed ED ROS GENERAL - Review of Systems Review Of Systems: See Below Constitutional: Reports: No Symptoms HEENT: Reports: No Symptoms Respiratory: Reports: No Symptoms Cardiovascular: Reports: No Symptoms Endocrine: Reports: No Symptoms GI/Abdominal: Reports: No Symptoms : Reports: No Symptoms Musculoskeletal: Reports: Shoulder Pain (right), Arm Pain (left wrist), Joint Pain (right knee and left ankle) Skin: Reports: No Symptoms Neurological: Reports: No Symptoms ED EXAM, GENERAL - Physical Exam Exam: See Below Exam Limited By: No Limitations General Appearance: Alert, No Apparent Distress Ears: Normal External Exam Nose: Normal Inspection Head: Atraumatic, Normocephalic Neck: Normal Inspection Respiratory/Chest: No Respiratory Distress, Lungs Clear, Normal Breath Sounds Cardiovascular: Regular Rate, Rhythm, No Edema, No Murmur GI/Abdominal: Soft, Non-Tender, No Organomegaly, No Mass Back Exam: Normal Inspection Extremities: Other (Pain upon palpation to the right shoulder with good sensation and pulses distally. Abrasion to the right forearm. Pain upon palpation to the left wrist. Pain upon palpation to the right knee with an abrasion. Good sensation and pulses distally. Pain upon palpation to the left ankle with some swelling.) Course - Vital Signs Last Recorded V/S: Last Vital Signs Temp 97.8 F 06/01/20 17:44 Pulse 97 06/01/20 17:44 Resp 20 10/29/20 17:44 BP 145/88 H 10/29/20 17:44 Pulse Ox 99 06/01/20 17:44 - Orders/Labs/Meds Orders: Active Orders 24 hr Category Date Time Status Ankle Min 3V Lt [CR] Stat Exams 06/01/20 18:12 Taken Knee Min 4V Rt [CR] Stat Exams 06/01/20 18:12 Taken Shoulder Comp Rt [CR] Stat Exams 06/01/20 18:11 Taken Wrist Comp Min 3V Lt [CR] Stat Exams 06/01/20 18:11 Taken - Re-Assessments/Exams Free Text/Narrative Re-Assessment/Exam: 06/01/20 18:30 I have ordered x-rays of her shoulder, wrist, knee and ankle. 06/01/20 19:07 Her x-rays all look good. I will discharge her home. Departure - Departure Time of Disposition: 19:10 Disposition: Home, Self-Care 01 Condition: Good Clinical Impression: Fall Qualifiers: Encounter type: initial encounter Qualified Code(s): W19.XXXA - Unspecified fall, initial encounter Left wrist sprain Qualifiers: Encounter type: initial encounter Qualified Code(s): S63.502A - Unspecified sprain of left wrist, initial encounter Sprain of right shoulder Qualifiers: Encounter type: initial encounter Shoulder sprain type: unspecified sprain Qualified Code(s): S43.401A - Unspecified sprain of right shoulder joint, initial encounter Contusion of knee, right Qualifiers: Encounter type: initial encounter Qualified Code(s): S80.01XA - Contusion of right knee, initial encounter Ankle sprain Qualifiers: Encounter type: initial encounter Involved ligament of ankle: other ligament Laterality: left Qualified Code(s): S93.492A - Sprain of other ligament of left ankle, initial encounter - Discharge Information *PRESCRIPTION DRUG MONITORING PROGRAM REVIEWED*: Not Applicable *COPY OF PRESCRIPTION DRUG MONITORING REPORT IN PATIENT HERMINIA: Not Applicable Referrals: Brian Cox MD [Primary Care Provider] - 1 Week Forms: ED Department Discharge Additional Instructions: Ice the areas that hurt for 15 minutes 3 times per day for 2 days. Take tylenol or motrin as needed for pain. Follow up with your doctor if you are not better within a week. Sepsis Event Note (ED) - Evaluation Sepsis Screening Result: No Definite Risk - Focused Exam Vital Signs: Vital Signs Temp Pulse Resp BP Pulse Ox 06/01/20 17:44 97.8 F 97 20 145/88 H 99 - My Orders Last 24 Hours: My Active Orders 06/01/20 18:11 Shoulder Comp Rt [CR] Stat Wrist Comp Min 3V Lt [CR] Stat 06/01/20 18:12 Ankle Min 3V Lt [CR] Stat Knee Min 4V Rt [CR] Stat - Assessment/Plan Last 24 Hours: My Active Orders 06/01/20 18:11 Shoulder Comp Rt [CR] Stat Wrist Comp Min 3V Lt [CR] Stat 06/01/20 18:12 Ankle Min 3V Lt [CR] Stat Knee Min 4V Rt [CR] Stat
--- NOTE | 2020-06-02 08:55 | CR ---
Exam: XR Left Ankle Exam date and time: 06/01/2020 6:24 PM Age: 49 years old Clinical indication: Pain; Ankle; Left; Patient HX: Patient fell TECHNIQUE: Imaging protocol: XR Left ankle. Views: 3 or more views. COMPARISON: No relevant prior studies available. FINDINGS: Bones/joints: There are chronic degenerative changes noted at the medial malleolus. Prominent plantar calcaneal spur. Prominent posterior calcaneal enthesophyte. No acutely displaced fracture or dislocation. Soft tissues: No significant soft tissue swelling. IMPRESSION: Negative for acute skeletal pathology. Thank you for allowing us to participate in the care of your patient. Dictated and Authenticated by: Diego Collins MD 06/01/2020 8:02 PM Central Time ([place] & [place]) [facility]
--- NOTE | 2020-06-02 08:56 | CR ---
PROCEDURE INFORMATION: Exam: XR Right Knee Exam date and time: 06/01/2020 6:27 PM Age: 49 years old Clinical indication: Pain; Knee; Right; Patient HX: Fell TECHNIQUE: Imaging protocol: XR Right knee. Views: 4 or more views. COMPARISON: No relevant prior studies available. FINDINGS: Bones/joints: Chronic ossific/calcific enthesopathy in the patellar tendon. Suprapatellar enthesophytes are also noted. No acutely displaced fracture or dislocation. No aggressive osseous lesions. No joint effusions. Soft tissues: No significant soft tissue swelling. IMPRESSION: Negative for acute skeletal pathology. Thank you for allowing us to participate in the care of your patient. Dictated and Authenticated by: Diego Collins MD 06/01/2020 8:03 PM Central Time ([place] & [place]) [facility]
--- NOTE | 2020-06-02 08:58 | CR ---
PROCEDURE INFORMATION: Exam: XR Left Wrist Exam date and time: 06/01/2020 6:31 PM Age: 49 years old Clinical indication: Pain; Wrist; Left; Patient HX: Fell TECHNIQUE: Imaging protocol: XR Left wrist. Views: 3 or more views. COMPARISON: No relevant prior studies available. FINDINGS: Bones/joints: Osseous anatomic alignment is well preserved. No acutely displaced fracture or dislocation. Joint spaces are well preserved. Soft tissues: There is no significant soft tissue swelling. IMPRESSION: Negative for acute skeletal pathology. Thank you for allowing us to participate in the care of your patient. Dictated and Authenticated by: Diego Collins MD 06/01/2020 8:05 PM Central Time ([place] & [place]) [facility]
--- NOTE | 2020-06-02 08:59 | CR ---
PROCEDURE INFORMATION: Exam: XR Right Shoulder Exam date and time: 06/01/2020 6:37 PM Age: 49 years old Clinical indication: Pain; Shoulder; Right; Patient HX: Fell TECHNIQUE: Imaging protocol: XR Right shoulder. Views: 2 or more views. COMPARISON: No relevant prior studies available. FINDINGS: Bones/joints: There are moderate degenerative changes of the right acromioclavicular joint. No acutely displaced fracture or dislocation. No aggressive osseous lesions. Soft tissues: No significant soft tissue swelling. No acute findings in the visualized chest. IMPRESSION: Negative for acute skeletal pathology. Thank you for allowing us to participate in the care of your patient. Dictated and Authenticated by: Diego Collins MD 06/01/2020 8:01 PM Central Time ([place] & [place]) [facility]
== END 2020-06-01 19:16 | disposition home or self-care (01) ==
LOC: JD.ED 17:35
DX: S93.492A Sprain of other ligament of left ankle, initial encounter (principal); S43.401A Unspecified sprain of right shoulder joint, initial encounter; S63.602A Unspecified sprain of left thumb, initial encounter; S80.01XA Contusion of right knee, initial encounter; I10 Essential (primary) hypertension; J45.909 Unspecified asthma, uncomplicated; E66.9 Obesity, unspecified; Z91.030 Bee allergy status; Z88.5 Allergy status to narcotic agent; W01.0XXA Fall on same level from slipping, tripping and stumbling without subsequent striking against object, initial encounter
CPT/HCPCS: 73030-26-RT; 73030-RT; 73110-26-LT; 73110-LT; 73564-26-RT; 73564-RT; 73610-26-LT; 73610-LT; 99283; 99284-25

== ENCOUNTER 2024-09-08 02:46 | Emergency (ER) | payer BC ==
[2024-09-08] MEDS: Acetaminophen 325 MG Tab PO ONE (03:26)
[2024-09-08 03:27] LABS: BASOPHILS PERCENT AUTO 0.1 % (0.0-1.0); EOSINOPHILS PERCENT AUTO 0.4 % (0.0-6.0); HEMATOCRIT 42.4 % (37.0-47.0); HEMOGLOBIN 13.9 gm/dl (12.0-16.0); IMMATURE GRAN ABSOLUTE AUTO 0.04 K/mm3 (0.00-0.05); IMMATURE GRAN PERCENT AUTO 0.6 % (0.0-0.4); LYMPHOCYTES ABSOLUTE AUTO 0.5 K/mm3 (1.0-4.8); MEAN CORPUSCULAR HEMOGLOBIN 28.6 pg (28.0-32.0); MEAN CORPUSCULAR HGB CONC 32.8 g/dl (32.0-36.0); MEAN CORPUSCULAR VOLUME 87.2 fl (83.0-99.0); MEAN PLATELET VOLUME 8.7 fl (9.4-12.3); MONOCYTES ABSOLUTE AUTO 0.6 K/mm3 (0.0-0.8); MONOCYTES PERCENT AUTO 9.2 % (0.0-8.0); NEUTROPHILS ABSOLUTE AUTO 5.5 K/mm3 (1.8-7.7); NEUTROPHILS PERCENT AUTO 81.7 % (41.0-71.0); PLATELET COUNT,PLT 241 K/mm3 (150-400); RED BLOOD CELL COUNT 4.86 M/mm3 (4.10-5.30); WHITE BLOOD CELL COUNT,WBC 6.75 K/mm3 (3.9-11.3)
[2024-09-08] MEDS: Albuterol/Ipratropium 3.0-0.5 MG/3 ML Neb Soln NEB ONE (03:30)
[2024-09-08 03:54] LABS: ALBUMIN 3.2 g/dl (3.4-5.0); ANION GAP 5.6 (5-15); BILIRUBIN TOTAL 0.3 mg/dL (0.2-1.0); CALCIUM 8.5 mg/dL (8.5-10.1); EST CRCL DRUG DOSING (CG) 56.12 mL/min; POTASSIUM,K 3.6 mEq/L (3.5-5.1); PROTEIN TOTAL,TP 6.5 g/dl (6.4-8.2)
== END 2024-09-08 05:00 | disposition home or self-care (01) ==
LOC: JD.ED 02:46
DX: J98.01 Acute bronchospasm (principal); R50.9 Fever, unspecified; I10 Essential (primary) hypertension; E66.9 Obesity, unspecified; Z91.013 Allergy to seafood; Z91.030 Bee allergy status; Z88.8 Allergy status to other drugs, medicaments and biological substances; Z79.890 Hormone replacement therapy; Z79.899 Other long term (current) drug therapy; Z90.49 Acquired absence of other specified parts of digestive tract; Z90.710 Acquired absence of both cervix and uterus; Z68.20 Body mass index [BMI] 20.0-20.9, adult
CPT/HCPCS: 36415; 71045; 71045-26; 80053; 85025; 87428-QW; 87651-QW; 94640; 99285; J7620-GY